=== PATIENT | male | born 1965 | race Caucasian/White ===

== ENCOUNTER 2017-10-22 08:41 | Observation (INO) | payer OTHER ==
--- NOTE | 2017-10-22 08:50 | ED ---
Chest Pain HPI - General Stated Complaint: Poss Stemi Time Seen by Provider: 10/22/17 08:48 - History of Present Illness Initial Comments: Patient complains of chest pain, pressure. His symptoms have been present for a few hours. He has some nausea and upset stomach as well. He has lightheadedness and dizziness. He states the pain does not radiate anywhere else. Nothing makes it better or worse. He was given aspirin EMS just prior to arrival. He has no pain or swelling the legs. He has no palpitations. He denies sick contacts. He denies any recent illnesses. Nothing else makes his symptoms better or worse. He was not doing anything when he began to feel this way. - Related Data Home Medications Medication Instructions Recorded Confirmed Levothyroxine Sodium [Synthroid] 125 mcg PO DAILY 11/11/14 11/10/15 Metoprolol Succinate [Toprol XL] 50 mg PO DAILY 11/11/14 11/10/15 Potassium Citrate [Urocit-K] 10 meq PO DAILY 11/11/14 11/10/15 Previous Rx's Medication Instructions Recorded Ibuprofen [Motrin] 800 mg PO Q8HR PRN #30 tab 11/10/15 Allergies Allergy/AdvReac Type Severity Reaction Status Date / Time dexamethasone Allergy Unknown Verified 11/14/14 10:34 Review of Systems ROS Statement: Those systems with pertinent positive or pertinent negative responses have been documented in the HPI. ROS Other: All systems not noted in ROS Statement are negative. EKG Findings - EKG Comments: EKG Findings:: Twelve-lead EKG is obtained, interpreted by me as showing ventricular rate 66 bpm, normal IL interval and QRS complexes, there is ST elevation in lead aVR, as well as depression in most of the precordial leads, consistent with right-sided STEMI. Past Medical History Past Medical History: Hypertension, Thyroid Disorder Additional Past Medical History / Comment(s): KIDNEY STONES History of Any Multi-Drug Resistant Organisms: None Reported Past Surgical History: Hernia Repair, Orthopedic Surgery Additional Past Surgical History / Comment(s): MEDICAL-back pain, Past Psychological History: No Psychological Hx Reported Smoking Status: Current some day smoker Past Alcohol Use History: None Reported Past Drug Use History: None Reported General Exam General appearance: alert, in no apparent distress Head exam: Present: atraumatic, normocephalic, normal inspection Eye exam: Present: normal appearance, PERRL, EOMI. Absent: scleral icterus, conjunctival injection, periorbital swelling ENT exam: Present: normal exam, mucous membranes moist Neck exam: Present: normal inspection. Absent: tenderness, meningismus, lymphadenopathy Respiratory exam: Present: normal lung sounds bilaterally. Absent: respiratory distress, wheezes, rales, rhonchi, stridor Cardiovascular Exam: Present: regular rate, normal rhythm, normal heart sounds. Absent: systolic murmur, diastolic murmur, rubs, gallop, clicks GI/Abdominal exam: Present: soft, normal bowel sounds. Absent: distended, tenderness, guarding, rebound, rigid Extremities exam: Present: normal inspection, full ROM, normal capillary refill. Absent: tenderness, pedal edema, joint swelling, calf tenderness Back exam: Present: normal inspection Neurological exam: Present: alert, oriented X3, CN II-XII intact Psychiatric exam: Present: normal affect, normal mood Skin exam: Present: warm, dry, intact, normal color. Absent: rash Chest Pain MDM - MDM Patient presents with chest pain and other symptoms consistent with acute AR. STEMI pager was activated patient will be admitted to the hospital. Disposition Clinical Impression: STEMI (ST elevation myocardial infarction) Disposition: ADMITTED IP TO THIS HOSP Condition: Fair Referrals: Zan David MD [Primary Care Provider] - 1-2 days
[2017-10-22] MEDS ORDERED: ATORVASTATIN 80 MG TAB PO STA (09:00)
[2017-10-22] MEDS ORDERED: HEPARIN SODIUM,PORCINE 5,000 UNIT/ML 1 ML VIAL IV STA (09:00)
[2017-10-22] MEDS ORDERED: NALOXONE 0.4 MG/ML 1 ML VIAL IV PRN (09:05)
[2017-10-22] MEDS ORDERED: ONDANSETRON 4 MG/2 ML VIAL IVP PRN (09:05)
[2017-10-22 09:11] LABS: Basophils % (A) 0 %; Eosinophils % (A) 1 %; HGB 14.7 gm/dL (13.0-17.5); Lymphocytes # (A) 1.1 k/uL (1.0-4.8); Lymphocytes % (A) 18 %; MCHC 35.8 g/dL (31.0-37.0); MCV 92.1 fL (80.0-100.0); Mean Platelet Volume 6.8; Monocytes # (A) 0.3 k/uL (0-1.0); Monocytes % (A) 5 %; Neutrophils # (A) 4.6 k/uL (1.3-7.7); Neutrophils % (A) 75 %; Platelet Count 208 k/uL (150-450); RBC 4.45 m/uL (4.30-5.90); RDW 12.5 % (11.5-15.5); WBC 6.1 k/uL (3.8-10.6)
[2017-10-22 09:12] LABS: ALT 31 U/L (21-72); AST 30 U/L (17-59); Albumin 4.2 g/dL (3.5-5.0); Alkaline Phosphatase 57 U/L (38-126); Anion Gap 12 mmol/L; Blood Urea Nitrogen 14 mg/dL (9-20); Calcium 9.9 mg/dL (8.4-10.2); Carbon Dioxide 23 mmol/L (22-30); Chloride 100 mmol/L (98-107); Glucose 141 mg/dL (74-99); Potassium 3.7 mmol/L (3.5-5.1); Sodium 135 mmol/L (137-145); Total Bilirubin 0.6 mg/dL (0.2-1.3); Total Protein 7.1 g/dL (6.3-8.2)
[2017-10-22 09:15] LABS: INR 1.1 (<1.2); Partial Thromboplastin Time 21.5 sec (22.0-30.0); Prothrombin Time 10.5 sec (9.0-12.0)
[2017-10-22] MEDS ORDERED: METOPROLOL TARTRATE 50 MG TAB PO SCH (09:15)
[2017-10-22] MEDS ORDERED: HEPARIN SOD,PORK IN 0.45% NACL 25,000 UNIT in 0.45% NACL 1 500ML.BAG IV SCH (09:15)
[2017-10-22 09:52] LABS: Creatine Kinase 317 U/L (55-170)
--- NOTE | 2017-10-22 09:59 | XR ---
EXAMINATION TYPE: XR chest 2V DATE OF EXAM: 10/22/2017 COMPARISON: None HISTORY: 51 year-old male chest pain TECHNIQUE: Frontal and lateral views FINDINGS: Heart mildly enlarged. Mild diffuse interstitial prominence. Hazy left basilar density likely relates to overlying soft tissue. No angel consolidation or significant pleural effusion. IMPRESSION: 1. Mild cardiomegaly. 2. Interstitial prominence has a chronic appearance. Correlate to exclude bronchitis or chronic asthm a.
[2017-10-22 10:06] LABS: Troponin I <0.012 ng/mL (0.000-0.034)
[2017-10-22 10:09] LABS: Creatine Kinase MB 2.5 ng/mL (0.0-2.4)
[2017-10-22] MEDS: MORPHINE SULFATE 4 MG/ML SYRINGE IV PRN ×2 (10:19→19:39)
[2017-10-22] MEDS: LEVOTHYROXINE 137 MCG TAB PO SCH (10:22)
--- NOTE | 2017-10-22 12:11 | ECHOF ---
Referral Reason:chest pain MEASUREMENTS -------- HEIGHT: 182.9 cm WEIGHT: 98.0 kg BP: 167/82 RVIDd: 3.7 cm (< 3.3) IVSd: 1.5 cm (0.6 - 1.1) LVIDd: 5.1 cm (3.9 - 5.3) LVPWd: 1.5 cm (0.6 - 1.1) IVSs: 2.1 cm LVIDs: 3.2 cm LVPWs: 1.9 cm Ao Diam: 5.2 cm (2.0 - 3.7) AV Cusp: 2.7 cm (1.5 - 2.6) LA Diam: 3.9 cm (2.7 - 3.8) MV EXCURSION: 25.770 mm (> 18.000) MV EF SLOPE: 87 mm/s (70 - 150) EPSS: 0.6 cm MV E Bola: 0.47 m/s MV DecT: 299 ms MV A Bola: 0.58 m/s MV E/A Ratio: 0.81 AR PHT: 465 ms RAP: 5.00 mmHg RVSP: 14.41 mmHg FINDINGS -------- Sinus rhythm. This was a technically adequate study. The left ventricular size is normal. There is moderate concentric left ventricular hypertrophy. O verall left ventricular systolic function is low-normal with, an EF between 50 - 55 %. The right ventricle is normal in size. The left atrial size is normal. The right atrial size is normal. There is [id number] aortic regurgitation. Mild mitral annular calcification present. Mild mitral regurgitation is present. Mild tricuspid regurgitation present. There is no evidence of pulmonary hypertension. The right v entricular systolic pressure, as measured by Doppler, is 14.41mmHg. There is no pulmonic regurgitation present. Aortic Root is dilated and measures 5.0cm. There is no pericardial effusion. CONCLUSIONS -------- 1. The left ventricular size is normal. 2. There is moderate concentric left ventricular hypertrophy. 3. Overall left ventricular systolic function is low-normal with, an EF between 50 - 55 %. 4. There is [id number] aortic regurgitation. 5. Mild mitral annular calcification present. 6. Mild mitral regurgitation is present. 7. Mild tricuspid regurgitation present. 8. There is no evidence of pulmonary hypertension. 9. The right ventricular systolic pressure, as measured by Doppler, is 14.41mmHg. 10. There is no pulmonic regurgitation present. 11. Aortic Root is dilated and measures 5.0cm. 12. There is no pericardial effusion. CREDIT ANALYSIS MANAGER: Genevieve Pennington RDCS
[2017-10-22] MEDS ORDERED: LIDOCAINE 4% CREAM 5 GM TUBE TOPICAL PRN (12:39)
[2017-10-22] MEDS ORDERED: DIAZEPAM 5 MG TAB PO PRN (12:39)
[2017-10-22] MEDS ORDERED: METHOCARBAMOL 750 MG TAB PO PRN (12:39)
[2017-10-22] MEDS ORDERED: ZOLPIDEM 5 MG TAB PO PRN (12:39)
[2017-10-22] MEDS ORDERED: IBUPROFEN 800 MG TAB PO PRN (12:39)
--- NOTE | 2017-10-22 12:57 | CONS ---
CONSULTATION Mr. Mode Leroy was brought to the hospital for possible ST-elevation MA. When I saw him he was complaining of pain in the low back, shortness of breath, a very mild discomfort in the chest, but basically he had taken his narcotics and he felt terrible after that. His 12-lead ECG that was sent from by EMS showed sinus rhythm, right bundle branch block, no clear-cut ST-segment elevation but a possible upsloping ST depression in V2, V3 and V4. When compared to his baseline ECG from October of 2014, he had a right bundle branch block pattern with horizontal ST depressions in the same leads from V3 to V5. He had another ECG done in the ER and it showed a right bundle branch block, but without any clear-cut ST-segment abnormalities of AV baseline and no clear-cut new ST-segment abnormalities. I repeated the ECG once again and he simply has the subtle ST depression in the precordial leads as described above. His first troponin later came back normal. Therefore, I canceled the call for ST-elevation MA and I also canceled urgent coronary angiography. On questioning, he took his pain medications and he felt terrible after that. He complains of a vague pressure in the chest, which is very mild, maybe nausea. He said yes to being lightheaded, dizzy, palpitations and shortness of breath, but did not appear to be short of breath. The pain was nonradiating. His medications include levothyroxine, metoprolol, and potassium. He takes metoprolol because of a rapid heartbeat and it seems he may have racing heart as well as a pounding or healing sensation in the chest, but we have no documentation of any arrhythmias or clear-cut diagnosis at this time. Allergies to DEXAMETHASONE. REVIEW OF SYSTEMS: No fever, chills, or rigors. No cough or expectoration. No nausea, vomiting, diarrhea. No hematuria, dysuria. No strokes, seizures or skin lesions. No musculoskeletal complaints. ECGs as described above. Heart rate in the 60s. According to the an ER physician's note, the EKG shows ST elevation in lead AVR and depression in the precordial leads, consistent with the right-sided STEMI. When compared to his old ECG in 2014, he has the same elevation in AVR with ST-segment abnormality in leads V2. SOCIAL HISTORY: He is a current smoker. No alcohol use. PAST MEDICAL HISTORY: Hypertension, thyroid disorder, palpitations with kidney stones. PAST SURGICAL HISTORY: Hernia repair and orthopedic surgery. PHYSICAL EXAMINATION: His heart rate was in the 50s and 60s. Blood pressure 141/8 and 167/82 mmHg. Head and neck examination is normal. Heart sounds are normal. Lungs are clear to auscultation. Abdomen is soft, nontender. Extremities are warm, no edema. He is lying comfortably in bed. IMPRESSION: 1. Mild chest discomfort with no clear-cut new ST-segment abnormalities on his ECG when compared to his old ECG. This is not consistent with an ST-elevation myocardial infarction. 2. Right bundle branch block. 3. Hypertension. SUGGEST: 1. The patient will be treated as non-Q-wave myocardial infarction until further information is obtained. Serial troponins. Start antihypertensive therapy. Continue beta blockers. Continue aspirin, statins and IV heparin for now. 2. In followup, his first troponin was normal. His CPK was elevated to 317 with a normal troponin of 0.012. Electrolytes were normal. Renal function was normal. Hemoglobin is normal. MMODL / IJN: [id number] /
[2017-10-22] MEDS: HYDROcodone/APAP 10-325MG 1 EACH TAB PO PRN ×2 (13:09→20:44)
[2017-10-22] MEDS: HEPARIN SODIUM,PORCINE 5,000 UNIT/ML 1 ML VIAL IV PRN ×2 (15:35→22:45)
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
[2017-10-22] MEDS: FAMOTIDINE 20 MG TAB PO SCH (17:35)
[2017-10-22] MEDS ORDERED: HEPARIN SODIUM,PORCINE 5,000 UNIT/ML 1 ML VIAL IV PRN (22:42)
[2017-10-23] MEDS: HYDROcodone/APAP 10-325MG 1 EACH TAB PO PRN ×2 (04:43→12:12)
[2017-10-23] MEDS: MORPHINE SULFATE 4 MG/ML SYRINGE IV PRN (07:29)
[2017-10-23 08:13] VITALS: RESP 18
[2017-10-23] MEDS ORDERED: AMINOPHYLLINE 500 MG/20 ML VIAL IV PRN (09:00)
[2017-10-23] MEDS ORDERED: RX INFO: IV CONTRAST WAS GIVEN 1 EACH MISC MISCELLANE PRN (09:00)
[2017-10-23] MEDS ORDERED: ASPIRIN 81 MG PO SCH (09:00)
[2017-10-23] MEDS ORDERED: METOPROLOL SUCCINATE (ER) 100 MG TAB.ER.24H PO SCH (09:00)
[2017-10-23] MEDS ORDERED: ATORVASTATIN 20 MG TAB PO SCH (09:00)
[2017-10-23] MEDS ORDERED: REGADENOSON 0.4 MG/5 ML SYRINGE IV ONE (09:00)
[2017-10-23] MEDS ORDERED: LORATADINE 10 MG TAB PO SCH (09:00)
[2017-10-23] MEDS ORDERED: ATORVASTATIN 40 MG TAB PO SCH (09:00)
--- NOTE | 2017-10-23 10:15 | CT ---
EXAMINATION TYPE: CT angio chest DATE OF EXAM: 10/23/2017 COMPARISON: Radiograph 10/22/2017. Also, CT abdomen and pelvis 05/07/2012. HISTORY: 51-year-old male with dilated aortic root on echo, rule out aortic dissection. TECHNIQUE: Contiguous axial scanning of the chest performed without and with IV Contrast, patient inj ected with 100 mL of Omnipaque 350. Coronal/sagittal MIP reconstructions performed. 3-D reconstructio ns generated on a dedicated independent workstation. CT DLP: 1850 mGycm Automated exposure control for dose reduction was used. FINDINGS: Heart is normal size without pericardial effusion. Very mild coronary vessel calcifications are prese nt. Initial noncontrast images of the aorta show no evidence for acute intramural hematoma. Postcontrast images show no evidence for aortic dissection. Aortic root is measured at 5.1 x 5.3 cm, axial image 31 and sagittal image 28 of series 9. Ascending aorta ectatic at 3.9 cm. Proximal arch measures 3.6 cm. Conventional arch vessel branching anatomy. Upper descending thoracic aorta measures 2.8 cm, within normal limits. Lower descending thoracic aorta borderline ectatic at 2.6 cm. 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 Possibly poststenotic dilatation. No thoracic lymphadenopathy by CT size criteria. Large caliber to the main right and left pulmonary arteries at 3.1 and 2.8 mm, respectively, raising possibility of underlying pulmonary arterial hypertension. Evaluation of the lungs show some strandy atelectasis or scarring in the inferior lingula and basilar left lower lobe. No consolidation or pleural effusion. There is a 4.6 cm mixed soft tissue and fat density mass exophytic from the left adrenal gland. This measured 2.9 cm on the 2012 CT. There is a 3 cm cyst in the upper pole left kidney. Additional small cortical cyst at the midpole and left collecting system staghorn calculus measuring 2.0 x 2.7 cm. Punctate 2 mm nonobstructive calcul us lower pole right kidney. There is underlying fatty infiltration of the liver characterized by low attenuation. Fluid attenuati ng 1.6 cm hypodense lesion right liver lobe likely a cyst. Bones: Partially visualized 10.3 x 5.0 cm lipomatous lesion within the upper left latissimus dorsi, r eferred axial image 10 and sagittal image 49. Endplate spondylosis mid to lower thoracic spine. No osseous destructive process. IMPRESSION: 1. 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 2. ECTATIC ASCENDING AORTA (3.9 CM). 3. 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 SUSPECT A POSTSTENOTIC ANEURYSM. 4. NO EVIDENCE FOR AORTIC DISSECTION. 5. LARGE CALIBER TO THE MAIN RIGHT AND LEFT PULMONARY ARTERIES CAN BE SEEN IN THE SETTING OF PULMONAR Y ARTERIAL HYPERTENSION. CORRELATE WITH FINDINGS ON ECHO. 6. A 4.6 CM MIXED SOFT TISSUE AND FATTY MASS INVOLVING THE LEFT ADRENAL GLAND SHOWS INCREASE IN SIZE FROM 2012 WHERE IT MEASURED 2.9 CM. 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 7. HEPATIC STEATOSIS AND A LEFT RENAL STAGHORN CALCULUS MEASURING UP TO 2.7 CM. 8. PARTIALLY VISUALIZED LIPOMATOUS LESION MEASURING AT LEAST 10.3 X 5.0 CM IN THE UPPER LEFT LATISSIM US DORSI. 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 HOWEVER, GIVEN THE SIZE OF THE LESION, CLINICAL SURV EILLANCE IS RECOMMENDED ATYPICAL LIPOMATOUS TUMOR AND LOW-GRADE LIPOSARCOMA COULD HAVE A SIMILAR A PPEARANCE. IF IMAGING FOLLOW-UP IS DESIRED, IN THE ABSENCE OF SYMPTOMS, ANNUAL EXAMINATION BE CONSIDE RED.
--- NOTE | 2017-10-23 11:51 | NM ---
EXAMINATION TYPE: NM stress lexiscan cardiolite DATE OF EXAM: 10/23/2017 COMPARISON: NONE HISTORY: Chest pain TECHNIQUE: After the intravenous administration of 10.29 mCi Tc 99m Sestamibi - Cardiolite resting S PECT images acquired 35 minutes post injection. The patient received 0.4mg Lexiscan, 27.1 mCi Tc 99m Sestamibi - Stress images obtained [address] injection FINDINGS: No fixed or reversible perfusion defects are evident. Gated wall motion has mild hypokinesia. There may be some dyskinesia of the inferior wall Ejection fraction is low at 45%. Normal greater than 50%. IMPRESSION: 1. No stress-induced ischemic changes. 2. Suspected mild dyskinesia of the inferior wall near the apex. There is some global hypokinesia. Ej ection fraction is low at 45%.
[2017-10-23] MEDS: LEVOTHYROXINE 137 MCG TAB PO SCH (12:08)
[2017-10-23] MEDS: FAMOTIDINE 20 MG TAB PO SCH (12:08)
[2017-10-23] MEDS ORDERED: LISINOPRIL 5 MG TAB PO SCH (12:15)
--- NOTE | 2017-10-23 12:19 | P.PN ---
Subjective Progress Note Date: 10/23/17 Mr. Leroy is seen and examined today resting comfortably in bed. He denies any further symptoms of chest pain, shortness of breath, dizziness, palpitations, nausea, vomiting or diaphoresis. Repeat EKG this morning is the same as yesterday with no acute changes. Telemetry tracings have been unremarkable. Cardiac enzymes are negative x3, echocardiogram performed revealed preserved left ventricular systolic function with ejection fraction 50-55%, mild to moderate aortic regurgitation, mild mitral regurgitation and mild tricuspid regurgitation. Aortic root is dilated and measured 5 cm. Blood pressure has remained elevated since admission with systolic as high as 172. Objective - Vital Signs Vital signs: Vital Signs Temp 97.8 F 10/23/17 11:52 Pulse 53 L 10/23/17 11:52 Resp 18 10/23/17 11:52 BP 156/91 10/23/17 11:52 Pulse Ox 96 10/23/17 11:52 Intake & Output 10/22/17 10/23/17 10/23/17 18:59 06:59 18:59 Intake Total 381.333 429.429 Balance 381.333 429.429 Weight 105.2 kg Intake: Amount of Fluid Infused ( 20 ml) Intake, IV Titration 121.333 189.429 Amount Heparin Sod,Pork in 0.45% 121.333 189.429 NaCl 25,000 unit In 0.45 % NaCl 1 500ml.bag @ 10. 184 UNITS/KG/HR 20 mls/hr IV .Q24H [facility] Rx#: [id number] Oral 240 240 Other: Voiding Method Toilet Toilet Toilet # Voids 1 - Exam Blood pressure 144/81 heart rate 58 afebrile maintaining oxygenation on 2 L nasal cannula. GENERAL: Well-appearing, well-nourished and in no acute distress. NECK: Supple without JVD or thyromegaly. LUNGS: Breath sounds clear to auscultation bilaterally. Respiration equal and unlabored. No wheezes, rales or rhonchi. Diminished. HEART: Regular rate and rhythm without murmurs, rubs or gallops. S1 and S2 heard. EXTREMITIES: Normal range of motion, no edema. No clubbing or cyanosis. Peripheral pulses intact and strong. - Labs CBC & Chem 7: 10/22/17 08:49 10/22/17 08:49 Labs: Abnormal Lab Results - Last 24 Hours (Table) 10/22/17 10/23/17 Range/Units 20:57 07:00 APTT 31.6 H 39.7 H (22.0-30.0) sec Assessment and Plan Assessment: ASSESSMENT 1. Chest pain, no evidence of an acute coronary event. Cardiac enzymes are negative x3. 2. Hypertension 3. Right bundle branch block 4. Dyslipidemia 5. Chronic tobacco abuse 6. Dilated aortic root PLAN Discontinue heparin infusion. Perform CT of the chest to further assess for aorta Perform Lexiscan stress test to assess for reversible cardiac ischemia. Add lisinopril 5 mg to daily regimen. Continue with atorvastatin, toprol and aspirin as was previously ordered. Further recommendations to follow. Nurse Practitioner note has been reviewed, I agree with a documented findings and plan of care. Patient was seen and examined.
--- NOTE | 2017-10-23 13:26 | P.DS ---
Providers Date of admission: 10/22/17 09:05 Attending physician: Zan David Consults: 10/22/17 09:06 Consult Physician Routine Consulting Provider: Mikey Briseno Consult Reason/Comments: chest pain Do you want consulting provider notified?: Yes Primary care physician: Zan David - Discharge Diagnosis(es) (1) Hypertension Current Visit: Yes Status: Acute (2) Opiate dependence Current Visit: Yes Status: Acute (3) Chronic back pain greater than 3 months duration Current Visit: Yes Status: Acute (4) STEMI (ST elevation myocardial infarction) Current Visit: Yes Status: Acute Hospital Course: This discharge 51-year-old white male essentially admitted for chest pressure. He is a smoker and has significant risk factors. However, cardiology workup did not show significant issue. Showed ejection fraction of 50-55%. The patient is not a symptomatically for pain and emulating and tolerating diet without difficulty. The patient was stabilized and will follow-up with me in about 5 days. Patient Condition at Discharge: Fair Plan - Discharge Summary Discharge Rx Participant: No New Discharge Prescriptions: New Aspirin 81 mg PO DAILY chew Lisinopril [Zestril] 5 mg PO DAILY #30 tab Continue Cetirizine HCl [Zyrtec] 10 mg PO DAILY Metoprolol Succinate [Toprol XL] 100 mg PO DAILY Methocarbamol [Robaxin] 750 mg PO Q8H PRN PRN Reason: Muscle Spasm Diazepam [Valium] 5 mg PO TID PRN PRN Reason: Anxiety Lidocaine 5% Oint [Xylocaine 5% Oint] 1 applic TOPICAL BID PRN PRN Reason: Pain Levothyroxine Sodium [Synthroid] 137 mcg PO DAILY Ibuprofen [Motrin] 800 mg PO AC-TID PRN PRN Reason: Pain Atorvastatin [Lipitor] 20 mg PO DAILY Zolpidem [Ambien] 5 mg PO HS PRN PRN Reason: Insomnia Hydrocodone/Acetaminophen [[place] 10-325] 1 tab PO Q6H PRN PRN Reason: Pain Discharge Medication List Atorvastatin [Lipitor] 20 mg PO DAILY 10/22/17 [History] Cetirizine HCl [Zyrtec] 10 mg PO DAILY 10/22/17 [History] Diazepam [Valium] 5 mg PO TID PRN 10/22/17 [History] Hydrocodone/Acetaminophen [[place] 10-325] 1 tab PO Q6H PRN 10/22/17 [History] Ibuprofen [Motrin] 800 mg PO AC-TID PRN 10/22/17 [History] Levothyroxine Sodium [Synthroid] 137 mcg PO DAILY 10/22/17 [History] Lidocaine 5% Oint [Xylocaine 5% Oint] 1 applic TOPICAL BID PRN 10/22/17 [History ] Methocarbamol [Robaxin] 750 mg PO Q8H PRN 10/22/17 [History] Metoprolol Succinate [Toprol XL] 100 mg PO DAILY 10/22/17 [History] Zolpidem [Ambien] 5 mg PO HS PRN 10/22/17 [History] Aspirin 81 mg PO DAILY chew 10/23/17 [Rx] Lisinopril [Zestril] 5 mg PO DAILY #30 tab 10/23/17 [Rx] Follow up Appointment(s)/Referral(s): Zan David MD [Primary Care Provider] - 1 Week Discharge Disposition: HOME SELF-CARE
--- NOTE | 2017-10-23 16:07 | P.STRESS ---
- Stress Test Note Stress Test Results/Findings: Exam Performed: NM stress lexiscan cardiolite Exam Date: 10/23/17 Reason for Exam: Chest Pain Height: 6 ft Weight: 105.2 kg Protocol: Racheal Scan Stage: na Duration of Exercise: na Resting Heart Rate: 58 Resting Blood Pressure: 150/96 Maximum Achieved Heart Rate: 75 Maximum Achieved Blood Pressure: 160/96 85% PMHR: na 100% PMHR: na METS: na Technologist Comment: Stress Test Results/Findings: This is a 51-year-old gentleman with history of hypertension, family history of ischemic heart disease and smoking being evaluated for symptoms of chest pain and shortness of breath. Baseline EKG showed sinus rhythm with normal [place] interval and QRS duration with incomplete her right bundle-branch block pattern.. Blood pressure at rest is 150/96 with pulse rate of 58. A standard dose of Lexiscan was infused EKGs taken during and after the exercise did not reveal any significant changes from the baseline. Final impression: #1. Negative Lexiscan stress test #2. Report on the nuclear images to be given by the radiologist.
[2017-10-23 16:18] VITALS: BP 140/84; PULSE 52; TEMP 98.3
[2017-10-23] MEDS ORDERED: MORPHINE ORAL SOLN 10 MG/5 ML CUP PO PRN (16:35)
--- NOTE | 2017-10-29 10:17 | EST ---
- Stress Test Note Stress Test Results/Findings: Exam Performed: NM stress lexiscan cardiolite Exam Date: 10/23/17 Reason for Exam: Chest Pain Height: 6 ft Weight: 105.2 kg Protocol: Racheal Scan Stage: na Duration of Exercise: na Resting Heart Rate: 58 Resting Blood Pressure: 150/96 Maximum Achieved Heart Rate: 75 Maximum Achieved Blood Pressure: 160/96 85% PMHR: na 100% PMHR: na METS: na Technologist Comment: Stress Test Results/Findings: This is a 51-year-old gentleman with history of hypertension, family history of ischemic heart disease and smoking being evaluated for symptoms of chest pain and shortness of breath. Baseline EKG showed sinus rhythm with normal [place] interval and QRS duration with incomplete her right bundle-branch block pattern.. Blood pressure at rest is 150/96 with pulse rate of 58. A standard dose of Lexiscan was infused EKGs taken during and after the exercise did not reveal any significant changes from the baseline. Final impression: #1. Negative Lexiscan stress test #2. Report on the nuclear images to be given by the radiologist. HUI
--- NOTE | 2017-10-30 11:35 | CDI ---
Outpatient Documentation Clarification Form Date: 10-30-17 CDS/Site Inspector Name: Namrata Caba Phone: If you have question, contact Vijaya Eng, Provider Network Mgr at M-F 8:30 am to 6pm. Patient Name: Mode Leroy Admit Date: 10-22-17 Discharge Date: 10-23-17 ATTENTION: The Clinical Documentation Specialists (CDI) and [facility] Coding Staff appreciate your assistance in clarifying documentation. Please respond to the clarification below the line at the bottom and electronically sign. The CDI & [facility] Coding staff will review the response and follow-up if needed. Please note: Queries are made part of the Legal Health Record. If you have any questions, please contact the author of this message via ITS or call the Provider Network Mgr. Dr. David, If you agree this patient had a confirmed "STEMI" please add as a discharge diagnosis below the line. If this was NOT confirmed please add "chest pain" as a discharge diagnosis below the line. Thank you. MTDD
== END 2017-10-23 17:13 | disposition home or self-care (01) ==
LOC: EC 08:41 → 3OBS 09:05
PROVIDERS: ADMIT Family Medicine; ATTEND Family Medicine
DX: R07.89 Other chest pain (principal); R00.2 Palpitations; R19.7 Diarrhea, unspecified; R11.0 Nausea; K30 Functional dyspepsia; R42 Dizziness and giddiness; R06.02 Shortness of breath; I10 Essential (primary) hypertension; F11.20 Opioid dependence, uncomplicated; G89.29 Other chronic pain; M54.5 Low back pain; E78.5 Hyperlipidemia, unspecified; I77.819 Aortic ectasia, unspecified site; I45.10 Unspecified right bundle-branch block; E03.9 Hypothyroidism, unspecified; N28.9 Disorder of kidney and ureter, unspecified; M19.90 Unspecified osteoarthritis, unspecified site; E66.9 Obesity, unspecified; Z68.31 Body mass index [BMI] 31.0-31.9, adult; F17.200 Nicotine dependence, unspecified, uncomplicated; Z79.899 Other long term (current) drug therapy; Z88.8 Allergy status to other drugs, medicaments and biological substances; Z87.442 Personal history of urinary calculi; Z82.49 Family history of ischemic heart disease and other diseases of the circulatory system; M19.011 Primary osteoarthritis, right shoulder; M19.012 Primary osteoarthritis, left shoulder; M17.0 Bilateral primary osteoarthritis of knee
CPT/HCPCS: 99285 ×2; 96376 ×4; 96375 ×3; 96365 ×2; 96366 ×3; 96361; 36415; 93005; 93017; 93306; 80053; 82550; 82553; 84484; 85025; 85610; 85730 ×2; 71046; 71275; 78452; G0378 ×2; A9500; J2270 ×2; J1644 ×2; Q9967; J2405; J2785

== ENCOUNTER 2017-12-12 08:34 | Observation (INO) | payer OTHER ==
[2017-12-12] MEDS ORDERED: SODIUM CHLORIDE 0.9% 1,000 ML IV STA ×2 (08:40)
[2017-12-12] MEDS ORDERED: ONDANSETRON 4 MG/2 ML VIAL IVP STA (08:40)
--- NOTE | 2017-12-12 08:44 | ED ---
Chest Pain HPI - General Stated Complaint: chest pain Time Seen by Provider: 12/12/17 08:34 Source: patient, EMS, RN notes reviewed Mode of arrival: EMS - History of Present Illness Initial Comments: This is a 51-year-old male with a history of hernia surgery and knee surgery who had the onset 3 days ago nausea vomiting diarrhea. He states she's not been able keep anything down over time he tries he throws up. He also states he been having some intermittent left-sided chest pain this morning it was very severe at 9/10 severity states that sharp left midsternal and radiated to his neck and left shoulder. He did summon EMS he was given 2 nitroglycerin as well as 324 mg aspirin the pain improved from a /10 to 3-11/26. He has no known history of chest pain/cardiac disease. He denies any blood per rectum as any other modifying factors he does feel lightheaded and dizzy when he tries to get up MD Complaint: chest pain, other - Related Data Home Medications Medication Instructions Recorded Confirmed Atorvastatin [Lipitor] 20 mg PO DAILY 10/22/17 12/12/17 Cetirizine HCl [Zyrtec] 10 mg PO DAILY 10/22/17 12/12/17 Diazepam [Valium] 5 mg PO TID PRN 10/22/17 12/12/17 Hydrocodone/Acetaminophen [[place] 1 tab PO Q6H PRN 10/22/17 12/12/17 10-325] Ibuprofen [Motrin] 800 mg PO AC-TID 10/22/17 12/12/17 Levothyroxine Sodium [Synthroid] 137 mcg PO DAILY 10/22/17 12/12/17 Lidocaine 5% Oint [Xylocaine 5% 1 applic TOPICAL BID PRN 10/22/17 12/12/17 Oint] Methocarbamol [Robaxin] 750 mg PO Q8H PRN 10/22/17 12/12/17 Metoprolol Succinate [Toprol XL] 100 mg PO DAILY 10/22/17 12/12/17 Zolpidem [Ambien] 5 mg PO HS 10/22/17 12/12/17 Lisinopril [Zestril] 10 mg PO DAILY 12/12/17 12/12/17 Pantoprazole Sodium [Protonix] 20 mg PO DAILY 12/12/17 12/12/17 Allergies Allergy/AdvReac Type Severity Reaction Status Date / Time dexamethasone Allergy Unknown Verified 12/12/17 09:25 Review of Systems ROS Statement: Those systems with pertinent positive or pertinent negative responses have been documented in the HPI. ROS Other: All systems not noted in ROS Statement are negative. EKG Findings - EKG Results: EKG: interpreted by ERMD (Sinus rhythm of 81. Interval 154 QRS duration 104 QT since QTC of 440/511 evidence a left exodeviation incomplete right bundle- branch block evidence of LVH nonspecific ST configuration QT prolongation this is compared to an EKG dated 10/23/17) Past Medical History Past Medical History: Hypertension, Osteoarthritis (OA), Renal Disease, Thyroid Disorder Additional Past Medical History / Comment(s): KIDNEY STONES, HYPOTHYROID, LOW BACK PAIN, ARTHRITIS BILATERAL SHOULDERS AND KNEES. History of Any Multi-Drug Resistant Organisms: None Reported Past Surgical History: Heart Catheterization, Hernia Repair, Orthopedic Surgery Additional Past Surgical History / Comment(s): CARDIAC CATH 1990s, R INGUINAL HERNIA REPAIR, BILATERAL KNEE ARTHROSCOPIES, CYSTO/URETERAL CATHETER/PNCL. Past Anesthesia/Blood Transfusion Reactions: No Reported Reaction Smoking Status: Current every day smoker - Past Family History Father Family Medical History: Coronary Artery Disease (CAD), Myocardial Infarction (NH ) Additional Family Medical History / Comment(s): FATHER HAD A NH AT THE AGE OF 56YRS. Mother Additional Family Medical History / Comment(s): MOTHER FROM A STAPH INFECTION. General Exam - General Exam Comments Initial Comments: This is a well-developed well-nourished awake alert oriented times 3 male General appearance: alert, in no apparent distress Head exam: Present: atraumatic, normocephalic, normal inspection Eye exam: Present: normal appearance, PERRL, EOMI. Absent: scleral icterus, conjunctival injection, periorbital swelling ENT exam: Present: mucous membranes dry Neck exam: Present: normal inspection, full ROM, other (No stridor JVD or bruits ). Absent: tenderness, meningismus, lymphadenopathy Respiratory exam: Present: normal lung sounds bilaterally. Absent: respiratory distress, wheezes, rales, rhonchi, stridor, chest wall tenderness Cardiovascular Exam: Present: regular rate, normal rhythm, normal heart sounds. Absent: systolic murmur, diastolic murmur, rubs, gallop, clicks GI/Abdominal exam: Present: soft, normal bowel sounds. Absent: distended, tenderness, guarding, rebound, rigid Extremities exam: Present: normal inspection, full ROM, normal capillary refill. Absent: tenderness, pedal edema, joint swelling, calf tenderness Back exam: Present: normal inspection Neurological exam: Present: alert, oriented X3, CN II-XII intact Psychiatric exam: Present: normal affect, normal mood Skin exam: Present: warm, dry, intact, normal color. 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 Patient still had chest pain though his workup thus far was negative he did have a fairly recent stress test was apparently negative. I did discuss case with him and with Dr. David the patient will be admitted for evaluation of chest pain Disposition Clinical Impression: Unstable angina, Gastroenteritis Disposition: ADMITTED IP TO THIS [facility] Condition: Stable Referrals: Zan David MD [Primary Care Provider] - 1-2 days
[2017-12-12 09:41] LABS: Basophils % (A) 1 %; Eosinophils # (A) 0.1 k/uL (0-0.7); Eosinophils % (A) 1 %; HCT 44.9 % (39.0-53.0); HGB 15.3 gm/dL (13.0-17.5); Lymphocytes # (A) 1.5 k/uL (1.0-4.8); Lymphocytes % (A) 22 %; MCHC 34.1 g/dL (31.0-37.0); Mean Platelet Volume 7.3; Monocytes # (A) 0.4 k/uL (0-1.0); Monocytes % (A) 5 %; Neutrophils # (A) 4.8 k/uL (1.3-7.7); Neutrophils % (A) 71 %; Platelet Count 230 k/uL (150-450); RBC 4.93 m/uL (4.30-5.90); RDW 12.4 % (11.5-15.5); WBC 6.7 k/uL (3.8-10.6)
[2017-12-12 09:51] LABS: ALT 31 U/L (21-72); AST 35 U/L (17-59); Albumin 4.9 g/dL (3.5-5.0); Alkaline Phosphatase 64 U/L (38-126); Amylase 60 U/L (30-110); Anion Gap 18 mmol/L; Blood Urea Nitrogen 12 mg/dL (9-20); Carbon Dioxide 21 mmol/L (22-30); Chloride 101 mmol/L (98-107); Glucose 142 mg/dL (74-99); Lipase 282 U/L (23-300); Magnesium 1.9 mg/dL (1.6-2.3); Potassium 3.7 mmol/L (3.5-5.1); Sodium 140 mmol/L (137-145); Total Bilirubin 0.7 mg/dL (0.2-1.3); Total Protein 7.8 g/dL (6.3-8.2)
[2017-12-12 09:54] LABS: INR 1.1 (<1.2); Partial Thromboplastin Time 22.3 sec (22.0-30.0); Prothrombin Time 10.6 sec (9.0-12.0)
[2017-12-12 09:56] LABS: D-Dimer 0.65 mg/L FEU (<0.60)
[2017-12-12 10:03] LABS: Creatine Kinase 67 U/L (55-170)
--- NOTE | 2017-12-12 10:03 | XR ---
EXAMINATION TYPE: XR chest 2V DATE OF EXAM: 12/12/2017 COMPARISON: 10/22/2017 HISTORY: Chest pain TECHNIQUE: Frontal and lateral views of the chest are obtained. FINDINGS: There is no focal air space opacity, pleural effusion, or pneumothorax seen. The cardiac silhouette size is enlarged. The osseous structures are intact. Minimal multilevel degenerative tk nges of the thoracic spine are noted. The lung apices are obscured by the patient's chin. IMPRESSION: Cardiomegaly with no acute cardiopulmonary process.
[2017-12-12 10:15] LABS: Creatine Kinase MB 0.6 ng/mL (0.0-2.4); Troponin I <0.012 ng/mL (0.000-0.034)
[2017-12-12] MEDS ORDERED: RX INFO: IV CONTRAST WAS GIVEN 1 EACH MISC MISCELLANE PRN (10:46)
--- NOTE | 2017-12-12 12:00 | CT ---
CT CHEST FOR PULMONARY EMBOLISM. EXAMINATION TYPE: CT angio chest DATE OF EXAM: 12/12/2017 INDICATION: Chest pain for [address] DLP: 595 mGycm, Automated exposure control for dose reduction was used. CONTRAST: Patient injected with 100 ml mL of Isovue 370. COMPARISON: 10/23/2017 TECHNIQUE: CT of the chest is performed on a spiral scan at 2 mm thick sections. Study is performed with intravenous contrast timed for evaluation for pulmonary embolism. This will limit additional po rtions of the evaluation. 3-D MIP images reconstructed by the technologist are reviewed on the compu ter in the coronal and sagittal planes. FINDINGS: No persistent filling defects are evident to suggest an acute pulmonary embolism. No mediastinal or hilar adenopathy enlarged by CT criteria is evident. The ascending aorta diameter at the level of the main pulmonary artery is 3.8 cm. There is more dilatation of the root of the aor ta measuring 4.8 x 4.8 cm. The main pulmonary artery diameter at the bifurcation is 3.1 cm. Lung windows are clear. Limited CT section through the upper abdomen are obtained. There is a hypodense area within the later al right mid liver measuring 1.3 cm. Additional hypodensities more superiorly measuring 1.8 cm. These measure approximately 0 Hounsfield units suggestive for cysts. IMPRESSIONS: 1. No acute pulmonary embolism.
[2017-12-12] MEDS ORDERED: HEPARIN SODIUM,PORCINE 5,000 UNIT/ML 1 ML VIAL IV ONE (12:47)
[2017-12-12] MEDS ORDERED: NITROGLYCERIN SL TABS 0.4 MG TAB SUBLINGUAL PRN (12:47)
[2017-12-12] MEDS ORDERED: LIDOCAINE 5% OINTMENT 50 GM JAR TOPICAL PRN (12:49)
[2017-12-12] MEDS ORDERED: DIAZEPAM 5 MG TAB PO PRN (12:49)
[2017-12-12] MEDS ORDERED: METHOCARBAMOL 750 MG TAB PO PRN (12:49)
[2017-12-12] MEDS ORDERED: HEPARIN SOD,PORK IN 0.45% NACL 25,000 UNIT in 0.45% NACL 1 500ML.BAG IV SCH (13:00)
[2017-12-12 15:07] VITALS: BMI 30.1
[2017-12-12 15:35] LABS: Creatine Kinase 61 U/L (55-170)
[2017-12-12 15:48] LABS: Creatine Kinase MB 0.6 ng/mL (0.0-2.4); Troponin I <0.012 ng/mL (0.000-0.034)
[2017-12-12] MEDS: HYDROcodone/APAP 10-325MG 1 EACH TAB PO PRN ×2 (17:38→22:50)
[2017-12-12] MEDS: NITROGLYCERIN OINT 1 INCH/GM PACKET TOPICAL SCH ×2 (19:42→23:20)
[2017-12-12] MEDS ORDERED: MAG HYDROX/AL HYDROX/SIMETH 30 ML CUP PO PRN (20:43)
[2017-12-12] MEDS ORDERED: ZOLPIDEM 5 MG TAB PO PRN (21:00)
[2017-12-12 21:21] LABS: Creatine Kinase 61 U/L (55-170)
--- NOTE | 2017-12-12 21:23 | P.HPIM ---
History of Present Illness H&P Date: 12/12/17 Chief Complaint: Chest pressure with nausea. This is a history and physical on a 51-year-old white male with history of chronic back pain and knee pain. He states three-day history of worsening nausea vomiting and intermittent left-sided chest pain which was severe this morning. He was relieved with nitroglycerin after calling EMS. He had similar symptoms recently within the last several months. That workup at that time was negative. He has no previous history of known cardiac disease. No GI upset or bleeding since admission. The patient does not describe any onset of diaphoretic symptoms Review of Systems Constitutional: Reports chronic pain, Denies weakness, Denies weight gain, Denies weight loss Eyes: denies blurred vision, denies pain Ears, nose, mouth and throat: Denies headache, Denies sore throat Cardiovascular: Reports as per HPI, Reports chest pain Respiratory: Denies cough Gastrointestinal: Denies abdominal pain, Denies diarrhea, Denies nausea, Denies vomiting Integumentary: Denies pruritus, Denies rash Neurological: Denies numbness, Denies weakness Psychiatric: Denies anxiety, Denies depression Past Medical History Past Medical History: GERD/Reflux, Hyperlipidemia, Hypertension, Osteoarthritis (OA), Thyroid Disorder Additional Past Medical History / Comment(s): Arthritis bilateral shoulders, bilateral knees and low back, chronic low back pain, nephrolithiasis, hypothyroid. History of Any Multi-Drug Resistant Organisms: None Reported Past Surgical History: Heart Catheterization, Hernia Repair, Orthopedic Surgery Additional Past Surgical History / Comment(s): CARDIAC CATH 1990s, R INGUINAL HERNIA REPAIR, BILATERAL KNEE ARTHROSCOPIES, CYSTO/URETERAL CATHETER/PNCL. Past Anesthesia/Blood Transfusion Reactions: No Reported Reaction Smoking Status: Current every day smoker - Past Family History Father Family Medical History: Coronary Artery Disease (CAD), Myocardial Infarction (NE ) Additional Family Medical History / Comment(s): FATHER HAD A NE AT THE AGE OF 56YRS. HE IS STILL LIVING. Mother Additional Family Medical History / Comment(s): MOTHER FROM A STAPH INFECTION. Medications and Allergies Home Medications Medication Instructions Recorded Confirmed Type Atorvastatin [Lipitor] 20 mg PO DAILY 10/22/17 12/12/17 History Cetirizine HCl [Zyrtec] 10 mg PO DAILY 10/22/17 12/12/17 History Diazepam [Valium] 5 mg PO TID PRN 10/22/17 12/12/17 History Hydrocodone/Acetaminophen [[place] 1 tab PO Q6H PRN 10/22/17 12/12/17 History 10-325] Ibuprofen [Motrin] 800 mg PO AC-TID 10/22/17 12/12/17 History Levothyroxine Sodium [Synthroid] 137 mcg PO DAILY 10/22/17 12/12/17 History Lidocaine 5% Oint [Xylocaine 5% 1 applic TOPICAL BID PRN 10/22/17 12/12/17 History Oint] Methocarbamol [Robaxin] 750 mg PO Q8H PRN 10/22/17 12/12/17 History Metoprolol Succinate [Toprol XL] 100 mg PO DAILY 10/22/17 12/12/17 History Zolpidem [Ambien] 5 mg PO HS 10/22/17 12/12/17 History Lisinopril [Zestril] 10 mg PO DAILY 12/12/17 12/12/17 History Pantoprazole Sodium [Protonix] 20 mg PO DAILY 12/12/17 12/12/17 History Allergies Allergy/AdvReac Type Severity Reaction Status Date / Time dexamethasone Allergy Unknown Verified 12/12/17 09:25 Physical Exam Vitals: Vital Signs Temp Pulse Pulse Pulse Resp BP BP 12/12/17 19:42 98.0 F 78 16 12/12/17 16:19 97.5 F L 70 18 170/95 12/12/17 14:25 97.4 F L 73 18 167/97 12/12/17 13:00 97.5 F L 70 16 184/90 12/12/17 11:42 97.6 F 61 19 142/87 12/12/17 10:55 65 18 136/76 12/12/17 09:57 63 18 138/70 12/12/17 09:08 86 12/12/17 08:44 98.5 F 86 20 116/66 BP Pulse Ox 12/12/17 19:42 197/107 99 12/12/17 16:19 96 12/12/17 14:25 98 12/12/17 13:00 97 12/12/17 11:42 99 12/12/17 10:55 97 12/12/17 09:57 98 12/12/17 09:08 12/12/17 08:44 97 Intake and Output 12/12/17 12/12/17 12/12/17 06:59 14:59 22:59 Intake Total 100 Balance 100 Intake: Oral 100 Other: Weight 100.8 kg - Constitutional General appearance: no acute distress - EENT Eyes: EOMI - Neck Neck: no lymphadenopathy - Respiratory Respiratory: bilateral: CTA - Cardiovascular Rhythm: regular Heart sounds: normal: S1, S2 Abnormal Heart Sounds: no S3 Gallop - Gastrointestinal General gastrointestinal: soft, no tenderness - Musculoskeletal Musculoskeletal: gait normal - Psychiatric Psychiatric: A&O x's 3 Results CBC & Chem 7: 12/12/17 09:30 12/12/17 09:30 Labs: Abnormal Lab Results - Last 24 Hours (Table) 12/12/17 12/12/17 Range/Units 09:30 09:30 D-Dimer 0.65 H (<0.60) mg/L FEU Carbon Dioxide 21 L (22-30) mmol/L Glucose 142 H (74-99) mg/dL Thrombosis Risk Factor Assmnt - Choose All That Apply Any of the Below Risk Factors Present?: Yes Each Factor Represents 1 point: Age 41-60 years, Obesity (BMI >25) Other Risk Factors: No Other congenital or acquired thrombophilia - If yes, enter type in comment: No Thrombosis Risk Factor Assessment Total Risk Factor Score: 2 Thrombosis Risk Factor Assessment Level: Low Risk Assessment and Plan (1) Unstable angina Current Visit: Yes Status: Acute Code(s): I20.0 - UNSTABLE ANGINA SNOMED Code(s): 7958297 (2) Chronic back pain greater than 3 months duration Current Visit: No Status: Acute Code(s): M54.9 - DORSALGIA, UNSPECIFIED; G89.29 - OTHER CHRONIC PAIN SNOMED Code(s): 610784975 (3) Hypertension Current Visit: No Status: Acute Code(s): I10 - ESSENTIAL (PRIMARY) HYPERTENSION SNOMED Code(s): 63585163 (4) Opiate dependence Current Visit: No Status: Acute Code(s): F11.20 - OPIOID DEPENDENCE, UNCOMPLICATED SNOMED Code(s): 73512437 Plan: Rule out myocardial infarction. Reconcile home medications. Watch vital signs closely. Question need for repeat cardiac testing in the a.m. We'll continue to follow. Time with Patient: Greater than 30
[2017-12-12 21:34] LABS: Creatine Kinase MB 0.6 ng/mL (0.0-2.4); Troponin I <0.012 ng/mL (0.000-0.034)
[2017-12-12 22:12] LABS: Cholesterol 145 mg/dL (<200); HDL Cholesterol 45 mg/dL (40-60); LDL Cholesterol,Calculated 66 mg/dL (0-99); Triglycerides 170 mg/dL (<150)
[2017-12-12 23:51] VITALS: RESP 18
[2017-12-13] MEDS: HYDROcodone/APAP 10-325MG 1 EACH TAB PO PRN ×2 (03:53→09:20)
[2017-12-13] MEDS: NITROGLYCERIN OINT 1 INCH/GM PACKET TOPICAL SCH (04:56)
[2017-12-13] MEDS ORDERED: LEVOTHYROXINE 137 MCG TAB PO SCH (06:30)
[2017-12-13] MEDS ORDERED: PANTOPRAZOLE SODIUM 40 MG GRANULE PKT PO SCH (07:30)
--- NOTE | 2017-12-13 08:14 | P.PN ---
Subjective Progress Note Date: 12/13/17 Principal diagnosis: Chest pain. The patient is here essentially because of recurrent chest pressure. He was recently admitted for similar symptoms but had significant substernal chest pressure for the last 2-3 days. He actually waited one day prior to coming in because he was not convinced that the pain was significant but the pain became worse. Enzymes are normal at this point 3. The patient rested comfortably and is now on heparin drip. I appreciate cardiology input. Objective - Vital Signs Vital signs: Vital Signs Temp 98.0 F 12/13/17 07:50 Pulse 75 12/13/17 07:50 Resp 18 12/13/17 07:50 BP 112/58 12/13/17 07:50 Pulse Ox 100 12/13/17 07:50 Intake & Output 12/12/17 12/13/17 12/13/17 18:59 06:59 18:59 Intake Total 100 365.853 Balance 100 365.853 Weight 100.8 kg Intake: Intake, IV Titration 365.853 Amount Heparin Sod,Pork in 0.45% 365.853 NaCl 25,000 unit In 0.45 % NaCl 1 500ml.bag @ 10 UNITS/KG/HR 19.95 mls/hr IV .Q24H ELOISE Rx#: [id number] Oral 100 Other: # Voids 1 - Constitutional General appearance: Present: obese - EENT Eyes: Absent: abnormal pupil - Respiratory Respiratory: bilateral: CTA - Cardiovascular Rhythm: regular Abnormal Heart Sounds: Absent: S3 Gallop - Gastrointestinal General gastrointestinal: Present: soft. Absent: tenderness - Psychiatric Psychiatric: Present: A&O x's 3, appropriate affect, intact judgment & insight - Labs CBC & Chem 7: 12/12/17 09:30 12/12/17 09:30 Labs: Abnormal Lab Results - Last 24 Hours (Table) 12/12/17 12/12/17 12/12/17 Range/Units 09:30 09:30 09:30 APTT (22.0-30.0) sec D-Dimer 0.65 H (<0.60) mg/L FEU Carbon Dioxide 21 L (22-30) mmol/L Glucose 142 H (74-99) mg/dL Triglycerides 170 H (<150) mg/dL 12/13/17 Range/Units 05:24 APTT 31.8 H (22.0-30.0) sec D-Dimer (<0.60) mg/L FEU Carbon Dioxide (22-30) mmol/L Glucose (74-99) mg/dL Triglycerides (<150) mg/dL Assessment and Plan (1) Unstable angina Current Visit: Yes Status: Acute Code(s): I20.0 - UNSTABLE ANGINA SNOMED Code(s): 1169839 (2) Chronic back pain greater than 3 months duration Current Visit: No Status: Acute Code(s): M54.9 - DORSALGIA, UNSPECIFIED; G89.29 - OTHER CHRONIC PAIN SNOMED Code(s): 532759380 (3) Hypertension Current Visit: No Status: Acute Code(s): I10 - ESSENTIAL (PRIMARY) HYPERTENSION SNOMED Code(s): 38657748 (4) Opiate dependence Current Visit: No Status: Acute Code(s): F11.20 - OPIOID DEPENDENCE, UNCOMPLICATED SNOMED Code(s): 64569559 Plan: Myocardial infraction is ruled out. Question need for recurrent type cardiac testing. Anticipate discharge to in the next 24 hours. See orders otherwise.
[2017-12-13] MEDS ORDERED: LORATADINE 10 MG TAB PO SCH (09:00)
[2017-12-13] MEDS ORDERED: METOPROLOL SUCCINATE (ER) 100 MG TAB.ER.24H PO SCH (09:00)
[2017-12-13] MEDS ORDERED: LISINOPRIL 10 MG TAB PO SCH (09:00)
[2017-12-13] MEDS ORDERED: ATORVASTATIN 20 MG TAB PO SCH (09:00)
[2017-12-13] MEDS ORDERED: ASPIRIN 325 MG TAB PO SCH (09:00)
--- NOTE | 2017-12-13 10:15 | P.CRDCN ---
History of Present Illness Consult date: 12/13/17 History of present illness: Mr. Leroy is a pleasant 51-year-old male past medical history significant for hypertension, dyslipidemia, arthritis, chronic back pain and chronic tobacco use. He sees Dr. Briseno in the office. We have been asked to see him in consultation for chest pain. He states over the last couple days he has been experiencing symptoms of tight chest pain in the left precordial region with no specific aggravating or alleviating factors. He also has been having diarrhea and vomiting. He said he has been vomiting where is continually dry heaving for periods up to 60 minutes at a time. His pain is reproducible on palpation of his chest. The pain is not radiating to the arm, back, neck of jaw. He denies associated shortness of breath or diaphoresis. He does feel symptoms of dizziness and palpitations at times. He was here in October with symptoms of chest pain that were evaluated with a Lexiscan stress test which was negative for reversible cardiac ischemia. At that time he had a CTA that revealed a dilated aortic root aneurysm at 5.1x5.3 cm. He has had an evaluation from CT surgery and the recommendation is follow up CT in 4 months to further assess if this is chronic stable or growing in size. CT was performed on this admission and reveals aortic root measuring 4.8 x 4.8 cm with no pulmonary embolism. EKG on arrival with incomplete right bundle branch block pattern and nonspecific ST changes noted in the precordial leads which is consistent with previous EKGs. Laboratory data reviewed, hemoglobin 15.3, platelets 230, d-dimer 0.65, sodium 140, potassium 3.7, magnesium 1.9, cardiac enzymes negative 3, LDL 66. Current medications include Toprol 100 mg daily, lisinopril 10 mg daily and atorvastatin 20 mg daily. He also takes Ambien, Protonix, Robaxin, Synthroid, Motrin, Valium, [place] and Zyrtec. Most recent echocardiogram reveals preserved left ventricular systolic function with ejection fraction 50-55%, mild to moderate aortic regurgitation and moderate concentric left ventricular hypertrophy. Review of Systems At the time of my exam: CONSTITUTIONAL: Denies fever. Denies chills. EYES: Denies blurred vision. Denies vision changes. Denies eye pain. EARS, NOSE, MOUTH & THROAT: Denies headache. Denies sore throat. Denies ear pain. CARDIOVASCULAR: Denies chest pain. Denies shortness of breath. Denies orthopnea. Denies PND. Denies palpitations. RESPIRATORY: Denies cough. GASTROINTESTINAL: Denies abdominal pain. Denies diarrhea. Denies constipation. Denies nausea. Denies vomiting. MUSCULOSKELETAL: Complains of chronic back pain. INTEGUMENTARY: Denies pruitis. Denies rash. NEUROLOGIC: Denies numbness. Denies tingling. Denies weakness. PSYCHIATRIC: Denies anxiety. Denies depression. ENDOCRINE: Denies fatigue. Denies weight change. Denies polydipsia. Denies polyurina. GENITOURINARY: Denies burning, hematuria or urgency with micturation. HEMATOLOGIC: Denies history of anemia. Denies bleeding. Past Medical History Past Medical History: GERD/Reflux, Hyperlipidemia, Hypertension, Osteoarthritis (OA), Thyroid Disorder Additional Past Medical History / Comment(s): Arthritis bilateral shoulders, bilateral knees and low back, chronic low back pain, nephrolithiasis, hypothyroid. History of Any Multi-Drug Resistant Organisms: None Reported Past Surgical History: Heart Catheterization, Hernia Repair, Orthopedic Surgery Additional Past Surgical History / Comment(s): CARDIAC CATH 1990s, R INGUINAL HERNIA REPAIR, BILATERAL KNEE ARTHROSCOPIES, CYSTO/URETERAL CATHETER/PNCL. Past Anesthesia/Blood Transfusion Reactions: No Reported Reaction Smoking Status: Current every day smoker - Past Family History Father Family Medical History: Coronary Artery Disease (CAD), Myocardial Infarction ([place] ) Additional Family Medical History / Comment(s): FATHER HAD A [place] AT THE AGE OF 56YRS. HE IS STILL LIVING. Mother Additional Family Medical History / Comment(s): MOTHER FROM A STAPH INFECTION. Medications and Allergies Home Medications Medication Instructions Recorded Confirmed Type Atorvastatin [Lipitor] 20 mg PO DAILY 10/22/17 12/12/17 History Cetirizine HCl [Zyrtec] 10 mg PO DAILY 10/22/17 12/12/17 History Diazepam [Valium] 5 mg PO TID PRN 10/22/17 12/12/17 History Hydrocodone/Acetaminophen [[place] 1 tab PO Q6H PRN 10/22/17 12/12/17 History 10-325] Ibuprofen [Motrin] 800 mg PO AC-TID 10/22/17 12/12/17 History Levothyroxine Sodium [Synthroid] 137 mcg PO DAILY 10/22/17 12/12/17 History Lidocaine 5% Oint [Xylocaine 5% 1 applic TOPICAL BID PRN 10/22/17 12/12/17 History Oint] Methocarbamol [Robaxin] 750 mg PO Q8H PRN 10/22/17 12/12/17 History Metoprolol Succinate [Toprol XL] 100 mg PO DAILY 10/22/17 12/12/17 History Zolpidem [Ambien] 5 mg PO HS 10/22/17 12/12/17 History Lisinopril [Zestril] 10 mg PO DAILY 12/12/17 12/12/17 History Pantoprazole Sodium [Protonix] 20 mg PO DAILY 12/12/17 12/12/17 History Allergies Allergy/AdvReac Type Severity Reaction Status Date / Time dexamethasone Allergy Unknown Verified 12/12/17 09:25 Physical Exam Vitals: Vital Signs Temp Pulse Pulse Resp BP BP BP 12/13/17 07:50 98.0 F 75 18 112/58 12/13/17 03:47 98.0 F 73 18 121/63 12/12/17 23:51 98.7 F 88 18 145/87 12/12/17 23:47 16 12/12/17 20:00 16 12/12/17 19:42 98.0 F 78 16 197/107 12/12/17 16:19 97.5 F L 70 18 170/95 12/12/17 14:25 97.4 F L 73 18 167/97 12/12/17 13:00 97.5 F L 70 16 184/90 12/12/17 11:42 97.6 F 61 19 142/87 12/12/17 10:55 65 18 136/76 12/12/17 09:57 63 18 138/70 Pulse Ox 12/13/17 07:50 100 12/13/17 03:47 96 12/12/17 23:51 97 12/12/17 23:47 12/12/17 20:00 12/12/17 19:42 99 12/12/17 16:19 96 12/12/17 14:25 98 12/12/17 13:00 97 12/12/17 11:42 99 12/12/17 10:55 97 12/12/17 09:57 98 Intake and Output 04/26/18 04/27/18 04/27/18 22:59 06:59 14:59 Intake Total 278.22 187.633 Balance 278.22 187.633 Intake: Intake, IV Titration 178.22 187.633 Amount Heparin Sod,Pork in 0.45% 178.22 187.633 NaCl 25,000 unit In 0.45 % NaCl 1 500ml.bag @ 10 UNITS/KG/HR 19.95 mls/hr IV .Q24H [facility] Rx#: [id number] Oral 100 Other: # Voids 1 Blood pressure 112/58 heart rate 75 afebrile maintaining oxygen saturation on nasal cannula 2 L. GENERAL: This is a 51-year-old male in no apparent distress at the time of my examination. HEENT: Head is atraumatic, normocephalic. Pupils are equal, round. Sclerae anicteric. Conjunctivae are clear. Mucous membranes of the mouth are moist. Neck is supple. There is no jugular venous distention. No carotid bruit is heard. LUNGS: Clear to auscultation no wheezes, rales or rhonchi. No chest wall tenderness is noted on palpation or with deep breathing. HEART: Regular rate and rhythm without murmurs, rubs or gallops. S1 and S2 heard. ABDOMEN: Soft, nontender. Bowel sounds are heard. No organomegaly noted. EXTREMITIES: No evidence of peripheral edema and no calf tenderness noted. VASCULAR: Radial and dorsalis pedis pulses palpated, no evidence of clubbing. NEUROLOGIC: Patient is awake, alert and oriented x3. Results 12/12/17 09:30 12/12/17 09:30 Cardiac Enzymes 12/12/17 12/12/17 12/12/17 Range/Units 09:30 09:30 14:58 AST 35 (17-59) U/L CK-MB (CK-2) 0.6 0.6 (0.0-2.4) ng/mL Troponin I <0.012 <0.012 (0.000-0.034) ng/mL 12/12/17 Range/Units 20:29 AST (17-59) U/L CK-MB (CK-2) 0.6 (0.0-2.4) ng/mL Troponin I <0.012 (0.000-0.034) ng/mL Coagulation 12/12/17 12/12/17 12/13/17 Range/Units 09:30 20:29 05:24 PT 10.6 (9.0-12.0) sec APTT 22.3 26.4 31.8 H (22.0-30.0) sec Lipids 12/12/17 Range/Units 09:30 Triglycerides 170 H (<150) mg/dL Cholesterol 145 (<200) mg/dL HDL Cholesterol 45 (40-60) mg/dL CBC 12/12/17 Range/Units 09:30 WBC 6.7 (3.8-10.6) k/uL RBC 4.93 (4.30-5.90) m/uL Hgb 15.3 (13.0-17.5) gm/dL Hct 44.9 (39.0-53.0) % Plt Count 230 (150-450) k/uL Comprehensive Metabolic Panel 12/12/17 Range/Units 09:30 Sodium 140 (137-145) mmol/L Potassium 3.7 (3.5-5.1) mmol/L Chloride 101 (98-107) mmol/L Carbon Dioxide 21 L (22-30) mmol/L BUN 12 (9-20) mg/dL Creatinine 0.85 (0.66-1.25) mg/dL Glucose 142 H (74-99) mg/dL Calcium 10.0 (8.4-10.2) mg/dL AST 35 (17-59) U/L ALT 31 (21-72) U/L Alkaline Phosphatase 64 (38-126) U/L Total Protein 7.8 (6.3-8.2) g/dL Albumin 4.9 (3.5-5.0) g/dL Current Medications Generic Name Dose Route Start Last Admin Trade Name Freq PRN Reason Stop Dose Admin Hydrocodone Bitart/Acetaminophen 1 each 12/12/17 12:49 12/13/17 09:20 [place] 10 PO 1 each Q6H PRN Administration Pain Al Hydroxide/Mg Hydroxide 30 ml 12/12/17 20:43 12/12/17 22:52 Maalox PO 30 ml Q4HR PRN Administration GI Upset Aspirin 325 mg 12/13/17 09:00 12/13/17 09:09 Aspirin PO 325 mg DAILY [facility] Administration Atorvastatin Calcium 20 mg 12/13/17 09:00 12/13/17 09:09 Lipitor PO 20 mg DAILY [facility] Administration Diazepam 5 mg 12/12/17 12:49 Valium PO TID PRN Anxiety Heparin Sodium/Sodium Chloride 500 mls @ 19.95 mls/hr 12/12/17 13:00 06:00 25,000 unit/ Sodium Chloride IV 16 units/kg/hr .Q24H ELO[facility] 31.93 mls/hr Protocol Titration 10 UNITS/KG/HR Levothyroxine Sodium 137 mcg 12/13/17 06:30 12/13/17 05:20 Synthroid PO 137 mcg DAILY@0630 [facility] Administration Lidocaine 1 applic 12/12/17 12:49 Xylocaine 5% Oint TOPICAL BID PRN Pain Lisinopril 10 mg 12/13/17 09:00 12/13/17 09:09 Zestril PO 10 mg DAILY [facility] Administration Loratadine 10 mg 12/13/17 09:00 12/13/17 09:09 Claritin PO 10 mg DAILY [facility] Administration Methocarbamol 750 mg 12/12/17 12:49 12/12/17 19:35 Robaxin PO 750 mg Q8H PRN Administration Muscle Spasm Metoprolol Succinate 100 mg 12/13/17 09:00 12/13/17 09:09 Toprol Xl PO 100 mg DAILY [facility] Administration Miscellaneous Information 1 each 12/12/17 10:46 Rx Info: Iv Contrast Was Given MISCELLANE 12/14/17 10:46 DAILY PRN Per Protocol Nitroglycerin 1 inch 12/12/17 18:00 12/13/17 04:56 Nitro-Bid Oint TOPICAL Not Given Q6HR [facility] Nitroglycerin 0.4 mg 12/12/17 12:47 Nitrostat SUBLINGUAL Q5M PRN Chest Pain Pantoprazole Sodium 20 mg 12/13/17 07:30 12/13/17 09:09 Protonix PO 20 mg AC-BRKFST [facility] Administration Zolpidem Tartrate 5 mg 12/12/17 21:00 12/12/17 22:54 Ambien PO 5 mg HS PRN Administration Insomnia Intake and Output 12/12/17 12/13/17 12/13/17 22:59 06:59 14:59 Intake Total 278.22 187.633 Balance 278.22 187.633 Intake: Intake, IV Titration 178.22 187.633 Amount Heparin Sod,Pork in 0.45% 178.22 187.633 NaCl 25,000 unit In 0.45 % NaCl 1 500ml.bag @ 10 UNITS/KG/HR 19.95 mls/hr IV .Q24H [facility] Rx#: [id number] Oral 100 Other: # Voids 1 12/12/17 09:30 12/12/17 09:30 Assessment and Plan Assessment: ASSESSMENT 1. Chest pain, atypical. Acute coronary event has been ruled out. The pain is reproducible on palpation. Most likely related to persistent vomiting causing a musckuloskeletal strain. 2. Hypertension 3. Dyslipidemia 4. Gastroesophageal reflux disease 5. Chronic back pain 6. Opiate dependence 7. Chronic tobacco abuse 8. Dilated arotic root 4.[address], decreased from previous in October PLAN Obtain acute coronary event has been ruled out. Discontinue heparin infusion. No further cardiac work-up required. Continue with lisinopril, atorvastatin and toprol as was previously ordered. Follow-up with Dr. Briseno in 2 next regularly schedule appointment. Thank you kindly for this consultation. The above impression and plan of care have been discussed and directed by the signing physician. Aleyda Fajardo, nurse practitioner, acting as scribe for signing physician.
[2017-12-13 11:55] VITALS: BP 134/81; PULSE 62; TEMP 97.5
== END 2017-12-13 15:52 | disposition home or self-care (01) ==
LOC: EC 08:34 → 3OBS 12:47
PROVIDERS: ADMIT Family Medicine; ATTEND Family Medicine
DX: R07.89 Other chest pain (principal); R11.2 Nausea with vomiting, unspecified; M19.012 Primary osteoarthritis, left shoulder; M19.011 Primary osteoarthritis, right shoulder; M17.0 Bilateral primary osteoarthritis of knee; M54.5 Low back pain; E03.9 Hypothyroidism, unspecified; I10 Essential (primary) hypertension; F17.200 Nicotine dependence, unspecified, uncomplicated; G89.29 Other chronic pain; F11.20 Opioid dependence, uncomplicated; E78.5 Hyperlipidemia, unspecified; G47.00 Insomnia, unspecified; K21.9 Gastro-esophageal reflux disease without esophagitis; Z79.890 Hormone replacement therapy; Z79.899 Other long term (current) drug therapy; Z88.8 Allergy status to other drugs, medicaments and biological substances; Z87.442 Personal history of urinary calculi; Z82.49 Family history of ischemic heart disease and other diseases of the circulatory system
CPT/HCPCS: 96375 ×2; 96376 ×2; 96361 ×6; 99291 ×2; 96365; 96366 ×2; 36415; 93005; 85379; 80061; 80053; 82150; 82550; 82553; 83690; 83735; 84484; 85025; 85610; 85730 ×2; 71046; 71275; G0378 ×2; J1644 ×2; J2405; Q9967

== ENCOUNTER 2018-02-19 20:03 | Emergency (ER) | payer OTHER ==
[2018-02-19 20:15] VITALS: TEMP 97.8
--- NOTE | 2018-02-19 21:21 | XR ---
EXAMINATION TYPE: XR chest 2V DATE OF EXAM: 02/19/2018 COMPARISON: 12/12/2017 HISTORY: Chest pain TECHNIQUE: Frontal and lateral views of the chest are obtained. FINDINGS: There is no heart failure nor confluent pneumonic infiltrate. Costophrenic angles are skyler r. There are chest leads. Bony thorax is intact. IMPRESSION: No active cardiopulmonary disease. Normal heart. There is improved inspiration compared to old exam.
[2018-02-19 21:22] LABS: Basophils # (A) 0.1 k/uL (0-0.2); Basophils % (A) 1 %; Eosinophils # (A) 0.1 k/uL (0-0.7); Eosinophils % (A) 1 %; HCT 42.7 % (39.0-53.0); HGB 14.5 gm/dL (13.0-17.5); Lymphocytes # (A) 1.7 k/uL (1.0-4.8); Lymphocytes % (A) 25 %; MCH 31.1 pg (25.0-35.0); MCHC 33.9 g/dL (31.0-37.0); MCV 91.7 fL (80.0-100.0); Mean Platelet Volume 6.9; Monocytes # (A) 0.3 k/uL (0-1.0); Monocytes % (A) 5 %; Neutrophils # (A) 4.5 k/uL (1.3-7.7); Neutrophils % (A) 67 %; Platelet Count 180 k/uL (150-450); RBC 4.65 m/uL (4.30-5.90); RDW 12.8 % (11.5-15.5); WBC 6.7 k/uL (3.8-10.6)
[2018-02-19 21:30] LABS: Anion Gap 13 mmol/L; Calcium 9.8 mg/dL (8.4-10.2); Carbon Dioxide 22 mmol/L (22-30); Chloride 103 mmol/L (98-107); Glucose 99 mg/dL (74-99); Sodium 138 mmol/L (137-145)
[2018-02-19 21:42] LABS: Blood Urea Nitrogen 11 mg/dL (9-20)
[2018-02-19] MEDS ORDERED: HYDROcodone/APAP 5-325MG 1 EACH TAB PO STA (23:37)
--- NOTE | 2018-02-19 23:44 | ED ---
Chest Pain HPI - General Chief Complaint: Chest Pain Stated Complaint: Chest Pain Source: patient Mode of arrival: ambulatory Limitations: no limitations - History of Present Illness Initial Comments: Dictation was produced using [employer] dictation software. please excuse any grammatical, word or spelling errors. Chief Complaint: Patient is a 52-year-old male with past medical history of cervical radiculopathy, chronic knee pain, chronic back pain presents with chest pain and back pain. History of Present Illness: 52-year-old male presents with chest pain and back pain. Patient initially reports chest pain to the left chest that is worse with left upper extremity movement. Patient denies any crushing substernal chest pressure. He describes the pain as sharp. Pain is worse with regulation of the left upper extremity. Patient also secondary complaint of right back pain. Patient reports that he was recently taken off his pain regimen. He does see Dr. David who manages his pain symptoms. Patient states he had a negative cardiac stress test back in October. Patient does have a history of opiate dependence. Denies any constitutional symptoms. Patient reports having history of chronic pain that needs surgery. He has not been able to get surgeries yet. Past Medical History: Hypertension, tobacco abuse Past Surgical History:[reviewed, none to report] Social History: Negative tobacco Family History: reviewed and noncontributory The ROS documented in this emergency department record has been reviewed and confirmed by me. Those systems with pertinent positive or negative responses have been documented in the HPI. All other systems are other negative and/or noncontributory. - Related Data Home Medications Medication Instructions Recorded Confirmed Atorvastatin [Lipitor] 20 mg PO DAILY 10/22/17 12/12/17 Cetirizine HCl [Zyrtec] 10 mg PO DAILY 10/22/17 12/12/17 Diazepam [Valium] 5 mg PO TID PRN 10/22/17 12/12/17 Hydrocodone/Acetaminophen [Glide 1 tab PO Q6H PRN 10/22/17 12/12/17 10-325] Ibuprofen [Motrin] 800 mg PO AC-TID 10/22/17 12/12/17 Levothyroxine Sodium [Synthroid] 137 mcg PO DAILY 10/22/17 12/12/17 Lidocaine 5% Oint [Xylocaine 5% 1 applic TOPICAL BID PRN 10/22/17 12/12/17 Oint] Methocarbamol [Robaxin] 750 mg PO Q8H PRN 10/22/17 12/12/17 Metoprolol Succinate [Toprol XL] 100 mg PO DAILY 10/22/17 12/12/17 Zolpidem [Ambien] 5 mg PO HS 10/22/17 12/12/17 Lisinopril [Zestril] 10 mg PO DAILY 12/12/17 12/12/17 Pantoprazole Sodium [Protonix] 20 mg PO DAILY 12/12/17 12/12/17 Previous Rx's Medication Instructions Recorded HYDROcodone/APAP 5-325MG [Glide 1 tab PO Q6HR PRN 3 Days #6 tab 02/19/18 5-325] Allergies Allergy/AdvReac Type Severity Reaction Status Date / Time dexamethasone Allergy Unknown Verified 12/12/17 09:25 Review of Systems ROS Statement: Those systems with pertinent positive or pertinent negative responses have been documented in the HPI. ROS Other: All systems not noted in ROS Statement are negative. Past Medical History Past Medical History: GERD/Reflux, Hyperlipidemia, Hypertension, Osteoarthritis (OA), Thyroid Disorder Additional Past Medical History / Comment(s): Arthritis bilateral shoulders, bilateral knees and low back, chronic low back pain, nephrolithiasis, hypothyroid. History of Any Multi-Drug Resistant Organisms: None Reported Past Surgical History: Heart Catheterization, Hernia Repair, Orthopedic Surgery Additional Past Surgical History / Comment(s): CARDIAC CATH 1990s, R INGUINAL HERNIA REPAIR, BILATERAL KNEE ARTHROSCOPIES, CYSTO/URETERAL CATHETER/PNCL. Past Anesthesia/Blood Transfusion Reactions: No Reported Reaction Past Psychological History: No Psychological Hx Reported Smoking Status: Current every day smoker - Past Family History Father Family Medical History: Coronary Artery Disease (CAD), Myocardial Infarction ([place] ) Additional Family Medical History / Comment(s): FATHER HAD A [place] AT THE AGE OF 56YRS. HE IS STILL LIVING. Mother Additional Family Medical History / Comment(s): MOTHER FROM A STAPH INFECTION. General Exam - General Exam Comments Initial Comments: Vitals: Signs upon arrival are within acceptable limits. PHYSICAL EXAM: General Impression: Alert and oriented x3, not in acute distress HEENT: Normocephalic atraumatic, extra-ocular movements intact, pupils equal and reactive to light bilaterally, mucous membranes moist. Cardiovascular: Heart regular rate and rhythm, S1&S2 audible, no murmurs, rubs or gallops Chest: Lungs clear to auscultation bilaterally, no rhonchi, no wheeze, no rales , tenderness to palpation over the left anterior chest reproduced with palpation. Abdomen: Bowel sounds present, abdomen soft, non-tender, non-distended, no organomegaly Musculoskeletal: Pulses present and equal in all extremities, no peripheral edema, tenderness to palpation of the right posterior superior iliac spine and right lower soft tissue about the level of L5 on the right side Motor: Power 5/5 bilaterally, no focal deficits noted Neurological: CN II-XII grossly intact, no focal motor or sensory deficits noted Skin: Intact with no visualized rashes Psych: Normal affect and mood Limitations: no limitations Course Vital Signs 02/19/18 02/19/18 02/19/18 20:12 20:48 21:15 Temperature 97.8 F Pulse Rate 76 72 65 Respiratory 18 18 20 Rate Blood Pressure 161/85 158/90 162/90 O2 Sat by Pulse 99 98 97 Oximetry 02/19/18 22:46 Temperature Pulse Rate 65 Respiratory 18 Rate Blood Pressure 142/68 O2 Sat by Pulse 98 Oximetry Chest Pain MDM - [facility] ED course: 52-year-old male with past medical history of opiate dependence and chronic pain presents with atypical chest pain and right back strain. Laboratory evaluation was obtained given that patient has a history of smoking and does have chest pain. EKGs benign. Vital signs are stable. Patient is well-appearing. Symptoms are reproducible with palpation to the same area. Patient had recent negative stress test in October. Laboratory evaluation obtained. CBC unremarkable. Basic metabolic panel is unremarkable. O2 sat troponins are negative. Chest x-ray shows no acute cardiopulmonary process. Patient is more concerned about his back pain service chest pain. Counseling on current guidelines to treating back pain was performed. He was told that early mobilization is the alfredo to improving his back pain. Patient did request some Glide pills and lidocaine patch. He promised to follow up with his primary care physician for outpatient management of his symptoms. Patient is understandable and agreeable to plan. Patient is told to return to the emergency Department with any worsening chest symptoms. Final impression: 1. Acute chest strain, 2. Back strain EKG Interpretation: A 12 lead EKG was obtained. It was interpreted by myself and attending physician. There is a P wave before every QRS complex. Rate is 72. Rhythm is, sinus rhythm, AK interval 140, Q synagogue 112, QTC 462. QT is not prolonged. No ST segment depression or elevation. Nonspecific findings of right bundle branch block without any ST or T-wave changes to indicate cardiac ischemia.. Overall, this EKG is unremarkable Disposition Clinical Impression: Chest pain, Back strain Disposition: HOME SELF-CARE Instructions: Costochondritis (ED), Low Back Strain (ED) Prescriptions: HYDROcodone/APAP 5-325MG [Glide 5-325] 1 tab PO Q6HR PRN 3 Days #6 tab PRN Reason: Pain Is patient prescribed a controlled substance at d/c from ED?: Yes When asked, does pt state using other controlled substances?: No If prescribed controlled substance>3 days was MAPS reviewed?: Prescribed <3 Days Referrals: Zan David MD [Primary Care Provider] - 1-2 days Time of Disposition: 23:47
[2018-02-19] MEDS ORDERED: LIDOCAINE 5% PATCH TOPICAL ONE (23:45)
[2018-02-20] MEDS ORDERED: KETOROLAC 30 MG/ML 1 ML VIAL IVP SCH
[2018-02-20 00:11] VITALS: BP 142/71; PULSE 69; RESP 17
== END 2018-02-20 00:49 | disposition home or self-care (01) ==
LOC: EC 20:03
DX: S39.012A Strain of muscle, fascia and tendon of lower back, initial encounter (principal); R07.89 Other chest pain; K21.9 Gastro-esophageal reflux disease without esophagitis; E78.5 Hyperlipidemia, unspecified; I10 Essential (primary) hypertension; E03.9 Hypothyroidism, unspecified; M46.96 Unspecified inflammatory spondylopathy, lumbar region; M19.012 Primary osteoarthritis, left shoulder; M19.011 Primary osteoarthritis, right shoulder; M17.0 Bilateral primary osteoarthritis of knee; F17.200 Nicotine dependence, unspecified, uncomplicated; Z95.818 Presence of other cardiac implants and grafts; Z82.49 Family history of ischemic heart disease and other diseases of the circulatory system; Z79.1 Long term (current) use of non-steroidal anti-inflammatories (NSAID); Z79.899 Other long term (current) drug therapy; Z88.8 Allergy status to other drugs, medicaments and biological substances
CPT/HCPCS: 36415; 93005; 80048; 84484; 85025; 71046; 99285; 96374; J1885

== ENCOUNTER 2018-03-14 08:24 | Day surgery (SDC) | payer OTHER ==
[2018-03-11 13:16] VITALS: BMI 30.5
[~2018-03-14 08:24] MED LIST: LACTATED RINGERS 1,000 ML IV SCH; LIDOCAINE 1% 20 ML VIAL (10MG/ML) FOR IV START INTRADERMA PRN; MIDAZOLAM 2 MG/2 ML VIAL IV PRN
[2018-03-14 08:42] VITALS: RESP 16; TEMP 98
[2018-03-14] MEDS ORDERED: LIDOCAINE 1% INJ 10MG/ML (20 ML MDV) ONE (09:06)
[2018-03-14] MEDS ORDERED: PROPOFOL 10 MG/ML 20 ML VIAL IV ONE (09:06)
--- NOTE | 2018-03-14 09:17 | P.GSHP ---
History of Present Illness H&P Date: 03/14/18 Chief Complaint: Chest pain, GERD Patient severe chest pains recently and belching. Some reflux symptoms as well. Burning at times. Slightly better with starting antiacids. Past Medical History Past Medical History: Chest Pain / Angina, GERD/Reflux, Hyperlipidemia, Hypertension, Osteoarthritis (OA), Thyroid Disorder Additional Past Medical History / Comment(s): Arthritis bilateral shoulders, bilateral knees and low back, chronic low back pain, nephrolithiasis, hypothyroid. History of Any Multi-Drug Resistant Organisms: None Reported Past Surgical History: Heart Catheterization, Hernia Repair, Orthopedic Surgery Additional Past Surgical History / Comment(s): CARDIAC CATH 1990s, R INGUINAL HERNIA REPAIR, BILATERAL KNEE ARTHROSCOPIES, CYSTO/URETERAL CATHETER/ lithotripsy Past Anesthesia/Blood Transfusion Reactions: No Reported Reaction Smoking Status: Current every day smoker - Past Family History Father Family Medical History: Coronary Artery Disease (CAD), Myocardial Infarction ([place] ) Additional Family Medical History / Comment(s): FATHER HAD A CA AT THE AGE OF 56YRS. HE IS STILL LIVING. Mother Additional Family Medical History / Comment(s): MOTHER FROM A STAPH INFECTION. Medications and Allergies Home Medications Medication Instructions Recorded Confirmed Type Cetirizine HCl [Zyrtec] 10 mg PO DAILY PRN 10/22/17 03/11/18 History Hydrocodone/Acetaminophen [[place] 1 tab PO Q6H PRN 10/22/17 03/11/18 History 10-325] Ibuprofen [Motrin] 800 mg PO AC-BID 10/22/17 03/14/18 History Levothyroxine Sodium [Synthroid] 137 mcg PO DAILY 10/22/17 03/11/18 History Methocarbamol [Robaxin] 750 mg PO Q8H PRN 10/22/17 03/11/18 History Metoprolol Succinate [Toprol XL] 100 mg PO DAILY 10/22/17 03/14/18 History Lisinopril [Zestril] 10 mg PO DAILY 12/12/17 03/11/18 History Pantoprazole Sodium [Protonix] 20 mg PO DAILY 12/12/17 03/11/18 History Allergies Allergy/AdvReac Type Severity Reaction Status Date / Time dexamethasone Allergy Unknown Verified 03/14/18 08:44 Surgical - Exam Vital Signs Temp Pulse Resp BP Pulse Ox 98.0 F 65 16 170/103 97 03/14/18 08:41 03/14/18 08:41 03/14/18 08:41 03/14/18 08:41 03/14/18 08:41 Physical exam: General: Well-developed, well-nourished HEENT: Normocephalic, sclerae nonicteric Abdomen: Nontender, nondistended Extremities: No edema Neuro: Alert and oriented Assessment and Plan (1) Chest pain Narrative/Plan: Will proceed with upper endoscopy at this time Current Visit: No Status: Acute Code(s): R07.9 - CHEST PAIN, UNSPECIFIED SNOMED Code(s): 09248546
--- NOTE | 2018-03-14 09:24 | P.PCN ---
Date of Procedure: 03/14/18 Procedure(s) Performed: Preoperative Dx: GERD, chest pain Postoperative Dx: Gastritis with small erosions, hiatal hernia Procedure: EGD with Bx Anesthesia: Sedation Endoscopist: Dr. Stewart Specimens: Antrum Endoscopic Procedure: The patient was on the endoscopy table in the left decubitus position. The Olympus gastroscope was inserted into the oropharynx and passed under direct visualization to the region of the third portion of the duodenum. From that point the scope was slowly withdrawn inspecting all surfaces carefully. There were no neoplastic inflammatory or polypoid lesions throughout the duodenum. The pylorus was widely patent. The stomach was carefully inspected. There was gastritis present with multiple small erosions in the prepyloric and antral region. A biopsy of the antrum took place to rule out H. pylori. Retroflexion revealed a small hiatal hernia. The esophagus was then carefully examined. There were no neoplastic inflammatory or polypoid lesions throughout the visualized esophagus. The patient was then taken to the recovery room in stable condition per anesthesia guidelines. Recommendations: Continue antiacid therapy. Await biopsy results. Recent chest pain may be on the basis of GERD symptoms.
[2018-03-14 09:58] VITALS: BP 175/97; PULSE 58
== END 2018-03-14 10:01 | disposition home or self-care (01) ==
LOC: ORWHC2ENDO 08:24
PROVIDERS: ATTEND Surgery
DX: K29.50 Unspecified chronic gastritis without bleeding (principal); K44.9 Diaphragmatic hernia without obstruction or gangrene; K25.9 Gastric ulcer, unspecified as acute or chronic, without hemorrhage or perforation; I10 Essential (primary) hypertension; K21.9 Gastro-esophageal reflux disease without esophagitis; G89.29 Other chronic pain; M19.012 Primary osteoarthritis, left shoulder; M19.011 Primary osteoarthritis, right shoulder; E78.5 Hyperlipidemia, unspecified; F17.210 Nicotine dependence, cigarettes, uncomplicated; E03.9 Hypothyroidism, unspecified; Z87.442 Personal history of urinary calculi; Z82.49 Family history of ischemic heart disease and other diseases of the circulatory system; Z88.8 Allergy status to other drugs, medicaments and biological substances; Z79.1 Long term (current) use of non-steroidal anti-inflammatories (NSAID); Z79.899 Other long term (current) drug therapy
CPT/HCPCS: 88305; 43239; J2001; J2704

== ENCOUNTER 2018-04-20 17:57 | Emergency (ER) | payer OTHER ==
[2018-04-20 18:07] VITALS: TEMP 98.1
[2018-04-20] MEDS ORDERED: KETOROLAC 30 MG/ML 1 ML VIAL IVP STA (18:15)
[2018-04-20] MEDS ORDERED: ORPHENADRINE 30 MG/ML 2 ML VIAL IVP STA (18:15)
[2018-04-20] MEDS ORDERED: MORPHINE SULFATE 2 MG/ML SYRINGE IVP STA (18:15)
--- NOTE | 2018-04-20 18:19 | ED ---
Back Pain HPI - General Chief Complaint: Back Pain/Injury Stated Complaint: Back injury Time Seen by Provider: 04/20/18 18:08 Source: patient Limitations: no limitations - History of Present Illness Initial Comments: 52-year-old male patient presents to emergency department today for evaluation of acute low back pain with radiation down the right leg to his foot. Patient states that around 11 this morning is helping work on a car when he wrenched his back and felt a popping sensation in the low back. Patient states that since then he has had severe low back pain and a burning/tingling sensation down the back of his leg all the way to his foot. Patient states he is also having some burning and tingling in his left foot. Patient states he has lost both bowel and bladder control. Patient denies any saddle anesthesia. States he does have a history of chronic low back pain but this is much worse than his usual symptoms. He states he did fall at time of injury however denies hitting his head or losing consciousness. Denies any other injuries. Patient denies any headache, neck pain, chest pain, shortness of breath, dizziness, weakness, abdominal pain, nausea, or vomiting. - Related Data Home Medications Medication Instructions Recorded Confirmed Cetirizine HCl [Zyrtec] 10 mg PO DAILY PRN 10/22/17 03/11/18 Hydrocodone/Acetaminophen [[place] 1 tab PO Q6H PRN 10/22/17 03/11/18 10-325] Ibuprofen [Motrin] 800 mg PO AC-BID 10/22/17 03/14/18 Levothyroxine Sodium [Synthroid] 137 mcg PO DAILY 10/22/17 03/11/18 Methocarbamol [Robaxin] 750 mg PO Q8H PRN 10/22/17 03/11/18 Metoprolol Succinate [Toprol XL] 100 mg PO DAILY 10/22/17 03/14/18 Lisinopril [Zestril] 10 mg PO DAILY 12/12/17 03/11/18 Pantoprazole Sodium [Protonix] 20 mg PO DAILY 12/12/17 03/11/18 Previous Rx's Medication Instructions Recorded Diazepam [Valium] 5 mg PO Q8HR PRN 3 Days #9 tab 04/20/18 Allergies Allergy/AdvReac Type Severity Reaction Status Date / Time dexamethasone Allergy Unknown Verified 03/14/18 08:44 Review of Systems ROS Statement: Those systems with pertinent positive or pertinent negative responses have been documented in the HPI. ROS Other: All systems not noted in ROS Statement are negative. Past Medical History Past Medical History: GERD/Reflux, Hyperlipidemia, Hypertension, Osteoarthritis (OA), Thyroid Disorder Additional Past Medical History / Comment(s): Arthritis bilateral shoulders, bilateral knees and low back, chronic low back pain, nephrolithiasis, hypothyroid. History of Any Multi-Drug Resistant Organisms: None Reported Past Surgical History: Heart Catheterization, Hernia Repair, Orthopedic Surgery Additional Past Surgical History / Comment(s): CARDIAC CATH 1990s, R INGUINAL HERNIA REPAIR, BILATERAL KNEE ARTHROSCOPIES, CYSTO/URETERAL CATHETER/PNCL. Past Anesthesia/Blood Transfusion Reactions: No Reported Reaction Past Psychological History: No Psychological Hx Reported Smoking Status: Current every day smoker Past Alcohol Use History: Occasional Past Drug Use History: None Reported - Past Family History Father Family Medical History: Coronary Artery Disease (CAD), Myocardial Infarction ([place] ) Additional Family Medical History / Comment(s): FATHER HAD A [place] AT THE AGE OF 56YRS. HE IS STILL LIVING. Mother Additional Family Medical History / Comment(s): MOTHER FROM A STAPH INFECTION. General Exam Limitations: no limitations General appearance: alert, in no apparent distress, other (This is a well- developed, well-nourished adult male patient in mild distress related to pain. Vital signs upon presentation are temperature 98.1F, pulse 76, respirations 16 , blood pressure 172/99, pulse ox 99% on room air.) Eye exam: Present: normal appearance, PERRL, EOMI. Absent: scleral icterus, conjunctival injection, periorbital swelling ENT exam: Present: normal exam, normal oropharynx, mucous membranes moist Neck exam: Present: normal inspection, full ROM, other (Nontender, no step-off, no deformity to firm midline palpation of the posterior cervical spine. Full range of motion without pain or limitation.). Absent: tenderness, meningismus, lymphadenopathy Respiratory exam: Present: normal lung sounds bilaterally. Absent: respiratory distress, wheezes, rales, rhonchi, stridor Cardiovascular Exam: Present: regular rate, normal rhythm, normal heart sounds. Absent: systolic murmur, diastolic murmur, rubs, gallop, clicks GI/Abdominal exam: Present: soft, normal bowel sounds. Absent: distended, tenderness, guarding, rebound, rigid Rectal exam: Present: normal rectal tone Extremities exam: Present: normal inspection, full ROM, normal capillary refill , other (Skin to the lower extremities is pink, warm, and dry. Cap refills less than 3 seconds. Pedal posttibial pulses are 2+ and equal bilaterally.). Absent: tenderness, pedal edema, joint swelling, calf tenderness Back exam: Present: vertebral tenderness (Lumbosacral) Neurological exam: Present: alert, oriented X3, CN II-XII intact Psychiatric exam: Present: normal affect, normal mood Skin exam: Present: warm, dry, intact, normal color. Absent: rash Course Vital Signs 04/20/18 04/20/18 18:04 21:08 Temperature 98.1 F Pulse Rate 76 74 Respiratory 16 18 Rate Blood Pressure 172/99 163/83 O2 Sat by Pulse 99 98 Oximetry Medical Decision Making - Medical Decision Making 52-year-old male patient presented to the emergency department today for complaints of increased low back pain after an injury today. Physical examination did reveal some lumbar tenderness. Patient was neurologically intact. There is reporting radiation of the pain down his right leg as well a some numbness or tingling to the right leg and both feet. CT of the lumbar spine was obtained and did show mild disc bulging at L5 to S1 as well as some spondylosis. Patient did receive several pain medications and muscle relaxers here in the emergency department, he is feeling somewhat better at time of discharge. He'll be discharged home with a prescription for Valium. He does have [place] 10 at home. He is instructed to continue taking his medications. He is instructed to follow-up with orthopedic patient financial specialist. He is instructed follow up with his primary care physician for recheck in 1-2 days. Return parameters discussed in detail. He verbalizes understanding and agrees with this plan. - Radiology Data Radiology results: report reviewed, image reviewed CT lumbar spine without contrast was obtained. The lumbar vertebrae abnormal alignment. There is mild spurring of the endplates anteriorly throughout the lumbar spine. There is small posterior disc herniation L5 to S1. There is no lumbar paraspinal mass. Posterior elements are intact. There is no spinal stenosis. There is mild facet arthropathy in the lower lumbar spine. Sacroiliac joints appear intact. There is no evidence of focal bone destruction. There is large calculus in the left kidney. This measures [address] Mayer shows mild spondylotic changes in lumbar spine. No fracture. [place]ag[place] calculus of the left kidney. Renal calculus is increased compared to 05/07/2012 exam. Disposition Clinical Impression: Acute exacerbation of chronic low back pain, Lumbar radiculopathy, Bulging lumbar disc Disposition: HOME SELF-CARE Condition: Good Instructions: Acute Low Back Pain (ED), Lumbar Radiculopathy (ED) Additional Instructions: Apply warm moist heat to the low back. Perform gentle range of motion exercises and he started to feel better. Take medications as directed. Follow- up with your primary care physician and the patient financial specialist for further evaluation. Return here immediately for any new, worsening, or concerning symptoms. Prescriptions: Diazepam [Valium] 5 mg PO Q8HR PRN 3 Days #9 tab PRN Reason: muscle spasm/back pain Is patient prescribed a controlled substance at d/c from ED?: Yes When asked, does pt state using other controlled substances?: Yes If prescribed controlled substance>3 days was MAPS reviewed?: Prescribed <3 Days Referrals: Elyssa Quinn DO [Primary Care Provider] - 1-2 days Time of Disposition: 21:16
--- NOTE | 2018-04-20 19:18 | CT ---
EXAMINATION TYPE: CT lumbar spine wo con DATE OF EXAM: 04/20/2018 7:03 PM COMPARISON: HISTORY: Low back pain with Right leg numbness CT DLP: 1324.9 mGycm Automated exposure control for dose reduction was used. Unenhanced CT of the lumbar spine was performed. Bone and soft tissue window settings are submitted as well as coronal and sagittal reconstructions. The lumbar vertebra have normal alignment. There is mild spurring of the endplates anteriorly through out the lumbar spine. There is small posterior disc herniation at L5-S1. There is no lumbar paraspina l mass. Posterior elements are intact. There is no spinal stenosis. There is mild facet arthropathy i n the lower lumbar spine. Sacroiliac joints appear intact. There is no evidence of focal bone destruc tion. There is a large calculus in the left kidney. This measures more than 2 cm. IMPRESSION: Mild spondylotic changes in the lumbar spine. No fracture. [place] calculus of the left kidney. Renal calculus is increased compared to 05/07/2012 exam.
[2018-04-20] MEDS ORDERED: HYDROmorphone 1 MG/ML 1 ML SYRINGE IVP STA (19:39)
[2018-04-20] MEDS ORDERED: ONDANSETRON 4 MG/2 ML VIAL IVP STA (19:50)
[2018-04-20 21:09] VITALS: BP 163/83; PULSE 74; RESP 18
[2018-04-20] MEDS ORDERED: DIAZEPAM 5 MG/ML 2 ML INJ IVP STA (21:09)
== END 2018-04-20 21:25 | disposition home or self-care (01) ==
LOC: EC 17:57
DX: M51.16 Intervertebral disc disorders with radiculopathy, lumbar region (principal); K21.9 Gastro-esophageal reflux disease without esophagitis; E78.5 Hyperlipidemia, unspecified; I10 Essential (primary) hypertension; M19.90 Unspecified osteoarthritis, unspecified site; E03.9 Hypothyroidism, unspecified; F17.200 Nicotine dependence, unspecified, uncomplicated; Z98.890 Other specified postprocedural states; Z79.1 Long term (current) use of non-steroidal anti-inflammatories (NSAID); Z79.899 Other long term (current) drug therapy; Z88.8 Allergy status to other drugs, medicaments and biological substances; X50.0XXA Overexertion from strenuous movement or load, initial encounter
CPT/HCPCS: 72131; 99284; 96374; 96375 ×5; J2360; J3360; J2405; J1885; J2270; J1170

== ENCOUNTER 2018-04-21 18:17 | Emergency (ER) | payer OTHER ==
[2018-04-21 18:25] VITALS: RESP 18
--- NOTE | 2018-04-21 18:46 | ED ---
Back Pain HPI - General Chief Complaint: Back Pain/Injury Stated Complaint: Back Pain & Trouble controlling bladder Time Seen by Provider: 04/21/18 18:27 Source: patient, RN notes reviewed Mode of arrival: wheelchair Limitations: no limitations - History of Present Illness Initial Comments: This is a 52-year-old male who presents to the emergency department with chief complaint of low back injury. Patient reports a history of chronic low back pain. Patient was seen here in the emergency department yesterday and states she was diagnosed with a L5 disc herniation. He states that yesterday morning he was helping his brother fix his car. He states that he bent over and lifted a tire causing acute pain to the right side of his low back. Patient states that he takes [place] at home and was prescribed Valium. Patient states that throughout the day today he has been unable to keep down any of his medications as he has been vomiting. He states that 4 times today he was incontinent of his bladder. Denies any bowel incontinence. He reports pain to the right side of his back with a burning intermittent pain shooting down the right leg to his calf. Denies any new injuries or trauma. Denies saddle paresthesias. Denies fevers or chills, chest pain or shortness breath, abdominal pain, dysuria or hematuria. - Related Data Home Medications Medication Instructions Recorded Confirmed Cetirizine HCl [Zyrtec] 10 mg PO DAILY PRN 10/22/17 03/11/18 Hydrocodone/Acetaminophen [[place] 1 tab PO Q6H PRN 10/22/17 03/11/18 10-325] Ibuprofen [Motrin] 800 mg PO AC-BID 10/22/17 03/14/18 Levothyroxine Sodium [Synthroid] 137 mcg PO DAILY 10/22/17 03/11/18 Methocarbamol [Robaxin] 750 mg PO Q8H PRN 10/22/17 03/11/18 Metoprolol Succinate [Toprol XL] 100 mg PO DAILY 10/22/17 03/14/18 Lisinopril [Zestril] 10 mg PO DAILY 12/12/17 03/11/18 Pantoprazole Sodium [Protonix] 20 mg PO DAILY 12/12/17 03/11/18 Previous Rx's Medication Instructions Recorded Diazepam [Valium] 5 mg PO Q8HR PRN 3 Days #9 tab 04/20/18 Allergies Allergy/AdvReac Type Severity Reaction Status Date / Time dexamethasone Allergy Unknown Verified 04/21/18 18:25 Review of Systems ROS Statement: Those systems with pertinent positive or pertinent negative responses have been documented in the HPI. ROS Other: All systems not noted in ROS Statement are negative. Past Medical History Past Medical History: GERD/Reflux, Hyperlipidemia, Hypertension, Osteoarthritis (OA), Thyroid Disorder Additional Past Medical History / Comment(s): Arthritis bilateral shoulders, bilateral knees and low back, chronic low back pain, nephrolithiasis, hypothyroid. History of Any Multi-Drug Resistant Organisms: None Reported Past Surgical History: Heart Catheterization, Hernia Repair, Orthopedic Surgery Additional Past Surgical History / Comment(s): CARDIAC CATH 1990s, R INGUINAL HERNIA REPAIR, BILATERAL KNEE ARTHROSCOPIES, CYSTO/URETERAL CATHETER/PNCL. Past Anesthesia/Blood Transfusion Reactions: No Reported Reaction Past Psychological History: No Psychological Hx Reported Smoking Status: Current every day smoker Past Alcohol Use History: Occasional Past Drug Use History: None Reported - Past Family History Father Family Medical History: Coronary Artery Disease (CAD), Myocardial Infarction ([place] ) Additional Family Medical History / Comment(s): FATHER HAD A [place] AT THE AGE OF 56YRS. HE IS STILL LIVING. Mother Additional Family Medical History / Comment(s): MOTHER FROM A STAPH INFECTION. General Exam - General Exam Comments Initial Comments: General: Awake and alert, well-developed; in no apparent distress. HEENT: Head atraumatic, normocephalic. Pupils are equal, round and reactive to light. Extraocular movements intact. Oropharynx moist without erythema or exudate. Neck: Supple. Normal ROM. Cardiovascular: Regular rate and rhythm. No murmurs, rubs or gallops. Chest symmetrical. Respiratory: Lungs clear to auscultation bilaterally. No wheezes, rales or rhonchi. Normal respiratory effort with no use of accessory muscles. Abdomen: Soft, non-tender, non-distended. No rigidity, rebound or guarding. Normal bowel sounds in all 4 quadrants. Musculoskeletal: Normal ROM, no tenderness bilateral upper and lower extremities. Patient is ambulating without assistance. Skin: [place], warm and dry without rashes or lesions. Neurological: Alert and oriented x3. CN II-XII grossly intact. Speech is fluent and answers are appropriate. No focal neuro deficits. Psychiatric: Normal mood and affect. No overt signs of depression or anxiety noted. Limitations: no limitations Rectal exam: Present: normal inspection, normal rectal tone, other (normal perineal sensation) Back exam: Present: normal inspection, tenderness (right SI joint tenderness), paraspinal tenderness. Absent: vertebral tenderness Course Vital Signs 04/21/18 18:21 Temperature 98.7 F Pulse Rate 84 Respiratory 18 Rate Blood Pressure 145/93 O2 Sat by Pulse 98 Oximetry Medical Decision Making - Medical Decision Making This is a 52-year-old male who presents to the emergency department with chief complaint of low back pain. Patient reports sustaining acute low back injury yesterday. He was seen here in the emergency department with a computed tomography scan of the low back was obtained. This revealed mild spondylotic changes in the lumbar spine with a small disc herniation at L5 to S1. Patient states that throughout the day today he has had 4 episodes of urinary incontinence. He also reports nausea and vomiting and is unable to keep down his pain medications. He denies any new injuries or trauma. On physical examination, there is tenderness to the right SI joint. He is neurovascularly intact. Rectal tone is normal and perineal sensation is normal. Pre-and post- residual void volumes were obtained with bladder scanner and patient is not significantly retaining urine. This case was discussed in detail with attending physician, Dr. Clayton. Recommend discharge home with follow-up to primary care provider for further evaluation with an MRI. Patient's vital signs have been stable and he is no acute distress. He is ambulating normally. He will be discharged home at this time. He is in agreement and voices understanding. All questions were answered. Patient was given Toradol and Norflex while in the emergency department. He will be provided with a starter pack for Zofran. Disposition Clinical Impression: Lumbar radiculopathy, Acute exacerbation of chronic low back pain Disposition: HOME SELF-CARE Condition: Good Instructions: Lumbar Radiculopathy (ED), Acute Low Back Pain (ED), Ondansetron (By mouth) Additional Instructions: Please take medications as prescribed. Please follow up with primary care provider within 1-2 days. Return to emergency department if symptoms should worsen or any concerns arise. Is patient prescribed a controlled substance at d/c from ED?: No Referrals: Elyssa Quinn DO [Primary Care Provider] - 1-2 days Time of Disposition: 20:04
[2018-04-21] MEDS ORDERED: KETOROLAC 30 MG/ML 1 ML VIAL IM STA (19:21)
[2018-04-21] MEDS ORDERED: ONDANSETRON 4 MG ODT STARTER PACK 2 TAB BTL PO STA (19:21)
[2018-04-21] MEDS ORDERED: ORPHENADRINE 30 MG/ML 2 ML VIAL IM STA (19:21)
[2018-04-21 20:20] VITALS: BP 161/94; PULSE 70; TEMP 99.1
== END 2018-04-21 20:19 | disposition home or self-care (01) ==
LOC: EC 18:17
DX: M54.16 Radiculopathy, lumbar region (principal); R32 Unspecified urinary incontinence; K21.9 Gastro-esophageal reflux disease without esophagitis; I10 Essential (primary) hypertension; M19.90 Unspecified osteoarthritis, unspecified site; E03.9 Hypothyroidism, unspecified; F17.200 Nicotine dependence, unspecified, uncomplicated; Z95.818 Presence of other cardiac implants and grafts; Z79.1 Long term (current) use of non-steroidal anti-inflammatories (NSAID); Z79.899 Other long term (current) drug therapy; Z88.8 Allergy status to other drugs, medicaments and biological substances; X50.0XXA Overexertion from strenuous movement or load, initial encounter
CPT/HCPCS: 51798; 99284; 96372 ×2; J2360; J1885; S0119

== ENCOUNTER → 2018-06-04 | Outpatient (CLI) | payer OTHER ==
--- NOTE | 2018-06-04 17:01 | CT ---
EXAMINATION TYPE: CT angio chest DATE OF EXAM: 06/04/2018 4:47 PM COMPARISON: 12/12/2017 HISTORY: f/u aortic aneurysm CT DLP: 1169.7 mGycm Automated exposure control for dose reduction was used. CONTRAST: CTA scan of the thorax is performed with IV Contrast, patient injected with 100 mL of Isovue 370, pul monary embolism protocol. . There are 3-D post processed images. Exam was performed without and with the IV contrast. FINDINGS: There is mild aneurysm of the ascending aorta that measures 3.9 cm and not significantly different th an last exam. There is normal contrast opacification of the pulmonary arteries. There are no filling defects. There is no mediastinal adenopathy. There are no hilar masses. There is no pericardial effus ion. There is no evidence of dissection. The lungs are clear of infiltrate. There is some spurring in the thoracic spine. There are 2 small rounded hypodense areas in the right lobe of the liver that ar e unchanged and consistent with hepatic cysts. IMPRESSION: STABLE MINIMAL ANEURYSM OF THE ASCENDING AORTA. NO EVIDENCE OF PULMONARY EMBOLISM.
== END | disposition home or self-care (01) ==
LOC: RADCTMAIN 15:43
PROVIDERS: ATTEND Family Medicine
DX: I71.2 Thoracic aortic aneurysm, without rupture (principal)
CPT/HCPCS: 71275; Q9967

== ENCOUNTER 2019-06-28 12:24 | Emergency (ER) | payer OTHER ==
[2019-06-28 12:50] VITALS: BP 148/91; PULSE 77; RESP 18; TEMP 98.8
[2019-06-28] MEDS ORDERED: LIDOCAINE 1% INJ 10MG/ML (20 ML MDV) SQ ONE (12:56)
--- NOTE | 2019-06-28 12:58 | ED ---
Skin/Abscess/FB HPI - General Chief complaint: Skin/Abscess/Foreign Body Stated complaint: Abcess back of leg Time Seen by Provider: 06/28/19 12:51 Source: patient, RN notes reviewed Mode of arrival: ambulatory Limitations: no limitations - History of Present Illness Initial comments: 55-year-old male presents emergency Department chief complaint of abscess to his left posterior thigh region. Patient states that this started approximate 2 weeks ago when she fell he was bit by a bug. He states that he's had increase in size and states today it is too painful to sit on. Patient denies any known fever states that he has not felt well at times but has been worse. Patient states that his been very minimal to no drainage. Patient denies being nadya betic. No history of skin infections. - Related Data Home Medications Medication Instructions Recorded Confirmed Cetirizine HCl [Zyrtec] 10 mg PO DAILY PRN 10/22/17 03/11/18 Hydrocodone/Acetaminophen [[place] 1 tab PO Q6H PRN 10/22/17 03/11/18 10-325] Ibuprofen [Motrin] 800 mg PO AC-BID 10/22/17 03/14/18 Levothyroxine Sodium [Synthroid] 137 mcg PO DAILY 10/22/17 03/11/18 Methocarbamol [Robaxin] 750 mg PO Q8H PRN 10/22/17 03/11/18 Metoprolol Succinate [Toprol XL] 100 mg PO DAILY 10/22/17 03/14/18 Lisinopril [Zestril] 10 mg PO DAILY 12/12/17 03/11/18 Pantoprazole Sodium [Protonix] 20 mg PO DAILY 12/12/17 03/11/18 Previous Rx's Medication Instructions Recorded Diazepam [Valium] 5 mg PO Q8HR PRN 3 Days #9 tab 04/20/18 Cephalexin [Keflex] 500 mg PO Q6HR #40 cap 06/28/19 HYDROcodone/APAP 10-325MG [[place] 1 tab PO Q6HR PRN 3 Days #12 tab 06/28/19 10-325] Ibuprofen [Motrin] 600 mg PO Q8HR PRN #30 tab 06/28/19 Sulfamethox-Tmp 800-160Mg [Bactrim 1 each PO Q12HR #20 tab 11/10/19 Ds] Allergies Allergy/AdvReac Type Severity Reaction Status Date / Time dexamethasone Allergy Unknown Verified 06/28/19 12:45 Review of Systems ROS Statement: Those systems with pertinent positive or pertinent negative responses have been documented in the HPI. ROS Other: All systems not noted in ROS Statement are negative. Past Medical History Past Medical History: GERD/Reflux, Hyperlipidemia, Hypertension, Osteoarthritis (OA), Thyroid Disorder Additional Past Medical History / Comment(s): Arthritis bilateral shoulders, bilateral knees and low back, chronic low back pain, nephrolithiasis, hypothyroid. History of Any Multi-Drug Resistant Organisms: None Reported Past Surgical History: Heart Catheterization, Hernia Repair, Orthopedic Surgery Additional Past Surgical History / Comment(s): CARDIAC CATH 1990s, R INGUINAL HERNIA REPAIR, BILATERAL KNEE ARTHROSCOPIES, CYSTO/URETERAL CATHETER/PNCL. Past Anesthesia/Blood Transfusion Reactions: No Reported Reaction Past Psychological History: No Psychological Hx Reported Smoking Status: Current every day smoker Past Alcohol Use History: Occasional Past Drug Use History: None Reported - Past Family History Father Family Medical History: Coronary Artery Disease (CAD), Myocardial Infarction ([place]) Additional Family Medical History / Comment(s): FATHER HAD A [place] AT THE AGE OF 56YRS. HE IS STILL LIVING. Mother Additional Family Medical History / Comment(s): MOTHER FROM A STAPH INFECTION. General Exam Limitations: no limitations General appearance: alert, in no apparent distress Head exam: Present: atraumatic, normocephalic, normal inspection Respiratory exam: Present: normal lung sounds bilaterally. Absent: respiratory distress, wheezes, rales, rhonchi, stridor Cardiovascular Exam: Present: regular rate, normal rhythm, normal heart sounds. Absent: systolic murmur, diastolic murmur, rubs, gallop, clicks Extremities exam: Present: other (Left posterior thigh there is an area of erythema approximately 4 cm in diameter, tender no fluctuant) Skin exam: Present: warm, dry, intact Course Vital Signs 06/28/19 12:45 Temperature 98.8 F Pulse Rate 77 Respiratory 18 Rate Blood Pressure 148/91 O2 Sat by Pulse 97 Oximetry Procedures - Incision & Drainage Consent Obtained: verbal consent Indication: Abscess Site: lower extremity (Left) Size (cm): 4 Anesthetic Used: lidocaine 1%, without epi Amount (mLs): 10 I&D Cleaning Method: Chloroprep Sterile Field Used?: No Scalpel Used: #11 I&D Drainage Obtained: Pus, Blood Culture Obtained?: No Patient Tolerated Procedure: well, no complications Medical Decision Making - Medical Decision Making Patient is a large abscess to his left posterior thigh. This was I&D emergency department is minimal drainage. Patient will be placed on Keflex, Bactrim. We discussed warm compresses and return parameters. Disposition Clinical Impression: Abscess of left leg Disposition: HOME SELF-CARE Condition: Stable Instructions (If sedation given, give patient instructions): Abscess Incision and Drainage (ED) Additional Instructions: Please return to the Emergency Department if symptoms worsen or any other concerns. Prescriptions: Sulfamethox-Tmp 800-160Mg [Bactrim Ds] 1 each PO Q12HR #20 tab Cephalexin [Keflex] 500 mg PO Q6HR #40 cap Ibuprofen [Motrin] 600 mg PO Q8HR PRN #30 tab PRN Reason: Pain HYDROcodone/APAP 10-325MG [[place] 10-325] 1 tab PO Q6HR PRN 3 Days #12 tab PRN Reason: pain Is patient prescribed a controlled substance at d/c from ED?: No Referrals: None,Stated [Primary Care Provider] - 1-2 days Time of Disposition: 13:13
== END 2019-06-28 13:19 | disposition home or self-care (01) ==
LOC: EC 12:24
DX: L02.416 Cutaneous abscess of left lower limb (principal); I10 Essential (primary) hypertension; K21.9 Gastro-esophageal reflux disease without esophagitis; E03.9 Hypothyroidism, unspecified; F17.200 Nicotine dependence, unspecified, uncomplicated; Z79.890 Hormone replacement therapy; Z79.899 Other long term (current) drug therapy; Z88.8 Allergy status to other drugs, medicaments and biological substances
CPT/HCPCS: 99283; 10060; J2001

== ENCOUNTER 2020-06-17 22:30 | Emergency (ER) | payer OTHER ==
[2020-06-17] MEDS ORDERED: MORPHINE SULFATE 4 MG/ML SYRINGE IV STA (22:57)
[2020-06-17] MEDS ORDERED: SODIUM CHLORIDE 0.9% 1,000 ML IV STA ×2 (22:57)
[2020-06-17 23:15] LABS: Basophils % (A) 1 %; Eosinophils # (A) 0.1 k/uL (0-0.7); Eosinophils % (A) 1 %; HGB 10.1 gm/dL (13.0-17.5); Lymphocytes # (A) 1.1 k/uL (1.0-4.8); Lymphocytes % (A) 17 %; MCH 33.6 pg (25.0-35.0); MCHC 33.5 g/dL (31.0-37.0); MCV 100.4 fL (80.0-100.0); Mean Platelet Volume 7.1; Monocytes # (A) 0.4 k/uL (0-1.0); Monocytes % (A) 6 %; Neutrophils # (A) 4.8 k/uL (1.3-7.7); Neutrophils % (A) 74 %; Platelet Count 133 k/uL (150-450); RBC 2.99 m/uL (4.30-5.90); RDW 13.1 % (11.5-15.5); WBC 6.6 k/uL (3.8-10.6)
--- NOTE | 2020-06-17 23:16 | ED ---
Chest Pain HPI - General Chief Complaint: Shortness of Breath Stated Complaint: Chest Pain Time Seen by Provider: 06/17/20 22:41 Source: patient, EMS, RN notes reviewed, old records reviewed Mode of arrival: EMS Limitations: physical limitation - History of Present Illness Initial Comments: is a 54-year-old male DF for evaluation patient is foreign half days out from left knee replacement. Patient was discharged from hospital on Saturday today is some significant worse pain in the left lower extremity increased swelling and chest pain chest tightness and cough. No fevers no history of heart disease. Patient is taking medication at home as directed with no significant improvement in his pain today. No shortness of breath MD Complaint: chest pain, other (chest tightness) -: hour(s) Onset: during rest, during exertion Pain Location: substernal Pain Radiation: none Severity: moderate Severity scale (1-10): 4 Quality: tightness, heaviness Consistency: constant Improves With: nothing Worsens With: nothing Context: recent illness Anginal Symptoms: dyspnea Other Symptoms: cough, palpitations Treatments Prior to Arrival: none - Related Data Home Medications Medication Instructions Recorded Confirmed Hydrocodone/Acetaminophen [[place] 1 tab PO Q4H PRN 10/22/17 06/17/20 10-325] Acetaminophen Tab [Tylenol Tab] 1,000 mg PO Q6HR PRN 06/17/20 06/17/20 Aspirin EC [Ecotrin Low Dose] 81 mg PO DAILY 06/17/20 06/17/20 Atorvastatin Calcium [Lipitor] 20 mg PO DAILY 06/17/20 06/17/20 Celebrex (Unknown Dose) 1 dose PO DAILY PRN 06/17/20 06/17/20 Levothyroxine Sodium 150 mcg PO DAILY 06/17/20 06/17/20 Metoprolol Succinate [Toprol XL] 200 mg PO DAILY 06/17/20 06/17/20 lisinopriL [Zestril] 20 mg PO DAILY 06/17/20 06/17/20 methocarbamoL [Robaxin] 500 mg PO Q8H PRN 06/17/20 06/17/20 Allergies Allergy/AdvReac Type Severity Reaction Status Date / Time dexamethasone Allergy Unknown Verified 06/17/20 22:56 Review of Systems ROS Statement: Those systems with pertinent positive or pertinent negative responses have been documented in the HPI. ROS Other: All systems not noted in ROS Statement are negative. EKG Findings - EKG Comments: EKG Findings:: EKG is sinus rhythm 64 OK 146 QRS 112 QTC 491 Past Medical History Past Medical History: GERD/Reflux, Hyperlipidemia, Hypertension, Osteoarthritis (OA), Thyroid Disorder Additional Past Medical History / Comment(s): Arthritis bilateral shoulders, bilateral knees and low back, chronic low back pain, nephrolithiasis, hypothyroid. History of Any Multi-Drug Resistant Organisms: None Reported Past Surgical History: Heart Catheterization, Hernia Repair, Joint Replacement, Orthopedic Surgery Additional Past Surgical History / Comment(s): CARDIAC CATH 1990s, R INGUINAL HERNIA REPAIR, BILATERAL KNEE ARTHROSCOPIES, CYSTO/URETERAL CATHETER/PNCL. bilateral total knee replacements Past Anesthesia/Blood Transfusion Reactions: No Reported Reaction Past Psychological History: No Psychological Hx Reported Smoking Status: Former smoker Past Alcohol Use History: Occasional Past Drug Use History: None Reported - Past Family History Father Family Medical History: Coronary Artery Disease (CAD), Myocardial Infarction (IA) Additional Family Medical History / Comment(s): FATHER HAD A IA AT THE AGE OF 56YRS. HE IS STILL LIVING. Mother Additional Family Medical History / Comment(s): MOTHER FROM A STAPH INFECTION. General Exam Limitations: physical limitation General appearance: alert, in no apparent distress Head exam: Present: atraumatic, normocephalic, normal inspection Eye exam: Present: normal appearance, PERRL, EOMI. Absent: scleral icterus, conjunctival injection, periorbital swelling ENT exam: Present: normal exam, mucous membranes moist Neck exam: Present: normal inspection. Absent: tenderness, meningismus, lymphadenopathy Respiratory exam: Present: normal lung sounds bilaterally. Absent: respiratory distress, wheezes, rales, rhonchi, stridor Cardiovascular Exam: Present: regular rate, normal rhythm, normal heart sounds. Absent: systolic murmur, diastolic murmur, rubs, gallop, clicks GI/Abdominal exam: Present: soft, normal bowel sounds. Absent: distended, t enderness, guarding, rebound, rigid Extremities exam: Present: normal inspection, full ROM, normal capillary refill. Absent: tenderness, pedal edema, joint swelling, calf tenderness Back exam: Present: normal inspection Neurological exam: Present: alert, oriented X3, CN II-XII intact Psychiatric exam: Present: normal affect, normal mood Skin exam: Present: warm, dry, intact, normal color. Absent: rash Course Vital Signs 06/17/20 06/17/20 06/17/20 22:34 22:47 22:58 Temperature 100.7 F H 99.4 F 99.3 F Pulse Rate 64 66 64 Respiratory 18 16 16 Rate Blood Pressure 189/91 172/89 174/92 O2 Sat by Pulse 98 97 98 Oximetry 06/17/20 06/18/20 06/18/20 23:11 00:45 01:38 Temperature 99.9 F H 100.2 F H Pulse Rate 70 67 66 Respiratory 18 18 Rate Blood Pressure 179/93 177/84 O2 Sat by Pulse 98 100 Oximetry 06/18/20 06/18/20 01:42 01:48 Temperature Pulse Rate 63 67 Respiratory 16 Rate Blood Pressure 161/85 O2 Sat by Pulse 100 Oximetry - Reevaluation(s) Reevaluation #1: 06/18/20 00:39 medical record is reviewed Reevaluation #2: 06/18/20 01:55 Multiple attempts have been made and are unsuccessful to reach Dr Sheldon Reevaluation #3: 06/18/20 01:56 spoke patient length he is refusing transfer to another hospital at this time, patient given IV antibiotics here in the ER blood pressure remains normal temperatures low-grade patient will follow-up with orthopedic doctor Chest Pain MDM - MDM 54 male DF for evaluation of pain, left knee pain chest pain CT negative for PE WILL FLOOR EXTREMITY NEGATIVE FOR DVT PATIENT REFUSING TRANSFER AT THIS TIME, WE WILL DISCHARGE PATIENT HOME DOES HAVE FEVER AND WILL NEED TO BE RULED OUT FOR JOINT INFECTION SECONDARY TO POSTOPERATIVE Disposition Clinical Impression: Fever, Postoperative fever, Postoperative pain, Chest pain, Left knee pain Disposition: HOME SELF-CARE Condition: Undetermined Instructions (If sedation given, give patient instructions): Fever in Adults (ED), Knee Pain (ED) Is patient prescribed a controlled substance at d/c from ED?: No Referrals: Calos Sheldon MD [REFERRING] - 1-2 days
[2020-06-17 23:27] LABS: ALT 14 U/L (4-49); AST 28 U/L (17-59); African American GFR (CKD) >90 (>60 ml/min/1.73 sqM); Albumin 3.7 g/dL (3.5-5.0); Alkaline Phosphatase 57 U/L (38-126); Anion Gap 4 mmol/L; Blood Urea Nitrogen 9 mg/dL (9-20); C Reactive Protein 48.5 mg/L (<10.0); Calcium 8.9 mg/dL (8.4-10.2); Carbon Dioxide 27 mmol/L (22-30); Chloride 101 mmol/L (98-107); Creatine Kinase 134 U/L (55-170); Glucose 110 mg/dL (74-99); Magnesium 1.9 mg/dL (1.6-2.3); Non-African American GFR(CKD) >90 (>60 ml/min/1.73 sqM); Phosphorus 3.4 mg/dL (2.5-4.5); Potassium 4.2 mmol/L (3.5-5.1); Sodium 132 mmol/L (137-145); Total Bilirubin 0.8 mg/dL (0.2-1.3); Total Protein 6.4 g/dL (6.3-8.2)
[2020-06-17 23:37] LABS: INR 0.9 (<1.2); Prothrombin Time 9.4 sec (9.0-12.0)
[2020-06-17 23:45] LABS: D-Dimer 1.78 mg/L FEU (<0.60)
--- NOTE | 2020-06-18 00:05 | US ---
EXAMINATION TYPE: US venous doppler duplex LE LT DATE OF EXAM: 06/17/2020 11:10 PM COMPARISON: NONE CLINICAL HISTORY: dvt. left total knee replacement 06/14/20. Pain, edema, redness left leg SIDE PERFORMED: left TECHNIQUE: The lower extremity deep venous system is examined utilizing real time linear array sonog humberto with graded compression, doppler sonography and color-flow sonography. VESSELS IMAGED: External Iliac Vein (EIV) Common Femoral Vein Deep Femoral Vein Greater Saphenous Vein * Femoral Vein Popliteal Vein Small Saphenous Vein * Proximal Calf Veins (* superficial vessels) Left Leg: no evidence of DVT as visualized. limitations due to large amount of soft tissue edema IMPRESSION: No sign of deep vein thrombosis in the left leg.
[2020-06-18 00:47] VITALS: TEMP 100.2
--- NOTE | 2020-06-18 00:53 | CT ---
EXAM: CT Angiography Chest With Intravenous Contrast CLINICAL HISTORY: Chest pain, evaluate for pulmonary embolism TECHNIQUE: Axial computed tomographic angiography images of the chest with intravenous contrast. CTDI is 26.37 mGy and DLP is 751.7 mGy-cm. This CT exam was performed using one or more of the following dose reduction techniques: automated exposure control, adjustment of the mA and/or kV according to patient size, and/or use of iterative reconstruction technique. MIP reconstructed images were created and reviewed. COMPARISON: 06/04/2018 FINDINGS: Pulmonary arteries: No pulmonary embolism. Aorta: No acute findings. No thoracic aortic aneurysm. Lungs: Unremarkable. No mass. No consolidation. Pleural space: Unremarkable. No significant effusion. No pneumothorax. Heart: Unremarkable. No cardiomegaly. No significant pericardial effusion. No evidence of RV dysfunction. Bones/joints: No acute fracture. No dislocation. Soft tissues: Left retroperitoneal soft tissue mass adjacent to the left cherise of the diaphragm is unchanged from 2018 measuring 4.4 x 4.1 x 4. 5 cm (series 401 image 165). Two left adrenal nodules measuring 1.7 cm and 1.2 cm, unchanged in size from 06/04/2018. Multiple cysts in the liver, unchanged in distrubution from prior study. Lymph nodes: Unremarkable. No enlarged lymph nodes. IMPRESSION: 1. No acute pulmonary embolism. 2. 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 MRI may be obtained for more sensitive evaluation if clinically indicated. 3. Unchanged left adrenal nodules measuring up to 1.7 cm.
[2020-06-18] MEDS ORDERED: IPRATROPIUM-ALBUTEROL 3 ML NEB INHALATION STA (00:58)
[2020-06-18] MEDS ORDERED: VANCOMYCIN IV PER PHARMACY 1 EACH MISC MISCELLANE PRN (01:02)
[2020-06-18] MEDS ORDERED: ACETAMINOPHEN TAB 500 MG TAB PO STA (01:02)
[2020-06-18] MEDS ORDERED: AMPICILLIN-SULBACTAM 3 GM in SODIUM CHLORIDE 0.9% 100 ML IVPB STA (01:02)
[2020-06-18 01:04] LABS: Appearance,Urine Clear (Clear); Bacteria,Urine Rare /hpf; Bilirubin,Urine Negative (Negative); Blood,Urine Moderate (Negative); Color,Urine Light Yellow; Glucose,Urine (UA) Negative (Negative); Ketones,Urine Negative (Negative); Leukocyte Esterase,Urine Negative (Negative); Mucus,Urine Rare /hpf; Nitrite,Urine Negative (Negative); Protein,Urine Negative (Negative); RBC,Urine 9 /hpf (0-5); Specific Gravity,Urine 1.013 (1.001-1.035); Urobilinogen,Urine <2.0 mg/dL (<2.0); WBC,Urine <1 /hpf (0-5)
[2020-06-18] MEDS ORDERED: hydrALAZINE HCL 20 MG/ML 1 ML VIAL IVP STA (01:27)
[2020-06-18 01:43] VITALS: RESP 16
[2020-06-18 01:48] VITALS: PULSE 67
[2020-06-18] MEDS ORDERED: SULFAMETH-TMP DS STARTER PACK 2 TAB BTL PO STA (01:54)
[2020-06-18] MEDS ORDERED: SULFAMETHOX-TMP 800-160MG 1 EACH TAB PO STA (01:54)
[2020-06-18] MEDS ORDERED: AMOXIC-POT CLAV 875-125MG 1 EACH TAB PO STA (01:54)
[2020-06-18] MEDS ORDERED: AMOXIC-POT CLAV 875MG STARTER PACK 2 TAB BTL PO STA (01:54)
[2020-06-18] MEDS ORDERED: VANCOMYCIN 2,250 MG in SODIUM CHLORIDE 0.9% 500 ML 500 ML IVPB ONE (02:00)
[2020-06-18 03:46] VITALS: BP 182/94
== END 2020-06-18 03:33 | disposition home or self-care (01) ==
LOC: EC 22:30
DX: R07.9 Chest pain, unspecified (principal); M25.562 Pain in left knee; R50.82 Postprocedural fever; G89.18 Other acute postprocedural pain; Z87.891 Personal history of nicotine dependence; E78.5 Hyperlipidemia, unspecified; I10 Essential (primary) hypertension; M19.90 Unspecified osteoarthritis, unspecified site; E07.9 Disorder of thyroid, unspecified; Z79.82 Long term (current) use of aspirin; Z79.899 Other long term (current) drug therapy; Z79.890 Hormone replacement therapy; Z95.5 Presence of coronary angioplasty implant and graft; Z96.653 Presence of artificial knee joint, bilateral; Z88.8 Allergy status to other drugs, medicaments and biological substances
CPT/HCPCS: 36415; 94640; 93005; 85379; 83880; 80053; 82550; 83605; 83735; 84100; 84484; 85025; 85610; 85730; 86140; 81001; 87040; 93971; 71275; 99285; 96365; 96367; 96375 ×2; J3370; J2270; J0360; J0295; Q9967

== ENCOUNTER 2022-01-21 12:13 | Emergency (ER) | payer OTHER ==
[2022-01-21 12:18] VITALS: BP 178/91; PULSE 70; RESP 16; TEMP 97.8
[2022-01-21] MEDS ORDERED: HYDROmorphone 1 MG/ML 1 ML SYRINGE IM STA (12:25)
[2022-01-21] MEDS ORDERED: KETOROLAC 15 MG/ML 1 ML VIAL IM STA (12:25)
--- NOTE | 2022-01-21 12:28 | ED ---
General Adult HPI - General Chief complaint: Back Pain/Injury Stated complaint: back/leg pain Time Seen by Provider: 01/21/22 12:21 Source: patient, RN notes reviewed Mode of arrival: ambulatory Limitations: no limitations - History of Present Illness Initial comments: Patient is a pleasant 56-year-old male presenting to the emergency department with lower back pain. Patient has chronic symptoms for years. Patient is scheduled to have surgery in less than [address] Kraig Alvarez. Patient states symptoms have been a little bit worse the past couple of days. No weakness. No loss of sensation. No incontinence or retention of bowel or bladder products. Discomfort does radiate to the right leg. - Related Data Home Medications Medication Instructions Recorded Confirmed Hydrocodone/Acetaminophen [[place] 1 tab PO Q4H PRN 10/22/17 06/17/20 10-325] Acetaminophen Tab [Tylenol Tab] 1,000 mg PO Q6HR PRN 06/17/20 06/17/20 Aspirin EC [Ecotrin Low Dose] 81 mg PO DAILY 06/17/20 06/17/20 Atorvastatin Calcium [Lipitor] 20 mg PO DAILY 06/17/20 06/17/20 Celebrex (Unknown Dose) 1 dose PO DAILY PRN 06/17/20 06/17/20 Levothyroxine Sodium 150 mcg PO DAILY 06/17/20 06/17/20 Metoprolol Succinate [Toprol XL] 200 mg PO DAILY 06/17/20 06/17/20 lisinopriL [Zestril] 20 mg PO DAILY 06/17/20 06/17/20 methocarbamoL [Robaxin] 500 mg PO Q8H PRN 06/17/20 06/17/20 Allergies Allergy/AdvReac Type Severity Reaction Status Date / Time dexamethasone Allergy Unknown Verified 01/21/22 12:18 Review of Systems ROS Statement: Those systems with pertinent positive or pertinent negative responses have been documented in the HPI. ROS Other: All systems not noted in ROS Statement are negative. Constitutional: Denies: fever Eyes: Denies: eye pain ENT: Denies: ear pain Respiratory: Denies: cough Cardiovascular: Denies: chest pain Endocrine: Denies: fatigue Gastrointestinal: Denies: abdominal pain, nausea, vomiting Genitourinary: Denies: dysuria Musculoskeletal: Reports: as per HPI, back pain Skin: Denies: rash Neurological: Denies: weakness Past Medical History Past Medical History: GERD/Reflux, Hyperlipidemia, Hypertension, Osteoarthritis (OA), Thyroid Disorder Additional Past Medical History / Comment(s): Arthritis bilateral shoulders, bilateral knees and low back, chronic low back pain, nephrolithiasis, hypothyroid. History of Any Multi-Drug Resistant Organisms: None Reported Past Surgical History: Heart Catheterization, Hernia Repair, Joint Replacement, Orthopedic Surgery Additional Past Surgical History / Comment(s): CARDIAC CATH 1990s, R INGUINAL HERNIA REPAIR, BILATERAL KNEE ARTHROSCOPIES, CYSTO/URETERAL CATHETER/PNCL. bilateral total knee replacements Past Anesthesia/Blood Transfusion Reactions: No Reported Reaction Past Psychological History: No Psychological Hx Reported Smoking Status: Former smoker Past Alcohol Use History: Occasional Past Drug Use History: None Reported - Past Family History Father Family Medical History: Coronary Artery Disease (CAD), Myocardial Infarction (NH) Additional Family Medical History / Comment(s): FATHER HAD A NH AT THE AGE OF 56YRS. HE IS STILL LIVING. Mother Additional Family Medical History / Comment(s): MOTHER FROM A STAPH INFECTION. General Exam Limitations: no limitations General appearance: alert, in no apparent distress Head exam: Present: normocephalic Eye exam: Present: normal appearance Respiratory exam: Present: normal lung sounds bilaterally Cardiovascular Exam: Present: regular rate, normal rhythm Expanded Peripheral pulses: 2+: Posterior Tibialis (R), Posterior Tibialis (L) GI/Abdominal exam: Present: soft. Absent: tenderness, pulsatile mass Extremities exam: Present: normal inspection Back exam: Present: vertebral tenderness (Right lower paraspinal) Neurological exam: Present: alert. Absent: motor sensory deficit Expanded Sensory exam: Lower Extremity Light Touch: Normal Motor strength exam: RLE: 5, LLE: 5 Psychiatric exam: Present: normal affect, normal mood Skin exam: Present: normal color Course Vital Signs 01/21/22 12:14 Temperature 97.8 F Pulse Rate 70 Respiratory 16 Rate Blood Pressure 178/91 O2 Sat by Pulse 99 Oximetry Medical Decision Making - Medical Decision Making Patient is receptive to medication administration and discharge. Disposition Clinical Impression: Lower back pain Disposition: HOME SELF-CARE Condition: Stable Instructions (If sedation given, give patient instructions): Acute Low Back Pain (ED) Additional Instructions: Please do follow-up with your primary care physician and back surgeon in the beginning of the week. Return for weakness, loss of control of bowel or bladder, loss of sensation and worsening or changing symptoms or other concerns. Is patient prescribed a controlled substance at d/c from ED?: No Referrals: Curry Camacho MD [STAFF PHYSICIAN] - 1-2 days Time of Disposition: 12:28
== END 2022-01-21 12:58 | disposition home or self-care (01) ==
LOC: EC 12:13
DX: M54.50 Low back pain, unspecified (principal); I10 Essential (primary) hypertension; E78.5 Hyperlipidemia, unspecified; K21.9 Gastro-esophageal reflux disease without esophagitis; E03.9 Hypothyroidism, unspecified; M19.90 Unspecified osteoarthritis, unspecified site; Z87.891 Personal history of nicotine dependence; Z79.82 Long term (current) use of aspirin; Z79.890 Hormone replacement therapy; Z79.899 Other long term (current) drug therapy
CPT/HCPCS: 99283; 96372 ×2; J1170; J1885

== ENCOUNTER 2024-02-03 11:09 | Emergency (ER) | payer SELFPAY ==
--- NOTE | 2024-02-03 11:42 | ED ---
Abdominal Pain HPI - General Chief Complaint: Abdominal Pain Stated Complaint: Abd Pain-Post Kidney Surgery Time Seen by Provider: 02/03/24 11:22 Source: patient, RN notes reviewed Mode of arrival: EMS Limitations: no limitations - History of Present Illness Initial Comments: This is a 58-year-old male with medical history of a right partial nephrectomy on 01/26, reports emergency department chief complaint of hematuria. Patient states that at 0 900 this morning he went to use the bathroom where he urinated blood. Patient states he had multiple other episodes of urination this morning which resulted in angel blood output. Patient is experiencing right flank pain with radiation into the mid right abdomen. Patient follows with Dr. Goel [facility], states that his next appointment is scheduled on 02/07. Patient was discharged from [facility] 01/28. Currently he is denying chest pain, chest pressure, palpitations, diarrhea, constipation, fevers. Patient endorses episode of dizziness this morning. Patient is on eliquis for an abdominal aneurysmm denies current antibiotic or steroid use. - Related Data Home Medications Medication Instructions Recorded Confirmed Hydrocodone/Acetaminophen [Emblem 1 tab PO Q4H PRN 10/22/17 02/03/24 10-325] Acetaminophen Tab [Tylenol Tab] 500 mg PO Q6HR PRN 06/17/20 02/03/24 Atorvastatin Calcium [Lipitor] 20 mg PO HS 06/17/20 02/03/24 Levothyroxine Sodium 150 mcg PO DAILY 06/17/20 02/03/24 methocarbamoL [Robaxin] 500 mg PO BID PRN 06/17/20 02/03/24 Amiodarone [Cordarone] 200 mg PO DAILY 02/03/24 02/03/24 Apixaban [Eliquis] 5 mg PO BID 02/03/24 02/03/24 Cholecalciferol [Vitamin D3 (25 50 mcg PO DAILY 02/03/24 02/03/24 Mcg = 1000 Iu)] Ketorolac [Toradol] 10 mg PO Q6HR PRN 02/03/24 02/03/24 Multivitamins, Thera [Multivitamin 1 tab PO DAILY 02/03/24 02/03/24 (formulary)] NIFEdipine XL [Procardia Xl] 30 mg PO DAILY 02/03/24 02/03/24 Naloxone HCl [Narcan] 4 mg NASAL DIRECTED PRN 02/03/24 02/03/24 Nitroglycerin Sl Tabs [Nitrostat] 0.4 mg SUBLINGUAL Q5M PRN 02/03/24 02/03/24 carvediloL [Coreg] 6.25 mg PO BID 02/03/24 02/03/24 Allergies Allergy/AdvReac Type Severity Reaction Status Date / Time dexamethasone Allergy Unknown Verified 02/03/24 12:16 Review of Systems ROS Statement: Those systems with pertinent positive or pertinent negative responses have been documented in the HPI. ROS Other: All systems not noted in ROS Statement are negative. Past Medical History Past Medical History: Cancer, GERD/Reflux, Hyperlipidemia, Hypertension, Osteoarthritis (OA), Thyroid Disorder Additional Past Medical History / Comment(s): Arthritis bilateral shoulders, bilateral knees and low back, chronic low back pain, nephrolithiasis, hypothyroi d, kidney cancer. History of Any Multi-Drug Resistant Organisms: None Reported Past Surgical History: Heart Catheterization, Hernia Repair, Joint Replacement, Orthopedic Surgery Additional Past Surgical History / Comment(s): CARDIAC CATH 1990s, R INGUINAL HERNIA REPAIR, BILATERAL KNEE ARTHROSCOPIES, CYSTO/URETERAL CATHETER/PNCL. bilateral total knee replacements Past Anesthesia/Blood Transfusion Reactions: No Reported Reaction Past Psychological History: No Psychological Hx Reported Smoking Status: Former smoker Past Alcohol Use History: Occasional Past Drug Use History: None Reported - Past Family History Father Family Medical History: Coronary Artery Disease (CAD), Myocardial Infarction ([place]) Additional Family Medical History / Comment(s): FATHER HAD A [place] AT THE AGE OF 56YRS. HE IS STILL LIVING. Mother Additional Family Medical History / Comment(s): MOTHER FROM A STAPH INFECTION. General Exam Limitations: no limitations General appearance: alert, in no apparent distress Head exam: Present: atraumatic, normocephalic, normal inspection Eye exam: Present: normal appearance, PERRL, EOMI. Absent: scleral icterus, conjunctival injection, periorbital swelling ENT exam: Present: normal exam, mucous membranes moist Neck exam: Present: normal inspection. Absent: tenderness, meningismus, lymphadenopathy Respiratory exam: Present: normal lung sounds bilaterally. Absent: respiratory distress, wheezes, rales, rhonchi, stridor Cardiovascular Exam: Present: regular rate, normal rhythm, normal heart sounds. Absent: systolic murmur, diastolic murmur, rubs, gallop, clicks GI/Abdominal exam: Present: soft, distended, tenderness (Right mid abdomen). Absent: guarding, rebound, rigid Extremities exam: Present: normal inspection, full ROM, normal capillary refill. Absent: tenderness, pedal edema, joint swelling, calf tenderness Back exam: Present: normal inspection, tenderness, CVA tenderness (R). Absent: full ROM Neurological exam: Present: alert, oriented X3, CN II-XII intact Psychiatric exam: Present: normal affect, normal mood Skin exam: Present: warm, dry, intact, normal color. Absent: rash Course Vital Signs 02/03/24 02/03/24 02/03/24 11:15 12:25 14:10 Temperature 98.1 F Pulse Rate 64 64 69 Respiratory 16 17 18 Rate Blood Pressure 130/81 123/77 125/81 O2 Sat by Pulse 97 99 96 Oximetry Medical Decision Making - Medical Decision Making Was pt. sent in by a medical professional or institution (, PA, CORRECTIONAL AGENCY DIRECTOR, urgent care, hospital, or snf...) When possible be specific @ -No Did you speak to anyone other than the patient for history (EMS, parent, family, police, friend...)? What history was obtained from this source @ -No Did you review nursing and triage notes (agree or disagree)? Why? @ -I reviewed and agree with nursing and triage notes Were old charts reviewed (outside hosp., previous admission, EMS record, old EKG, old radiological studies, urgent care reports/EKG's, snf records)? Report findings @ -No old charts were reviewed Differential Diagnosis (chest pain, altered mental status, abdominal pain women, abdominal pain men, vaginal bleeding, weakness, fever, dyspnea, syncope, headache, dizziness, GI bleed, back pain, seizure, CVA, palpatations, mental health, musculoskeletal)? @ -Differential Abdominal Pain Men: Appendicitis, cholecystitis, diverticulosis, ischemic bowel, pancreatitis, hepatitis, UTI, gastroenteritis, AAA, incarcerated hernia, bowel obstruction, constipation, inflammatory bowel, hepatitis, peptic ulcer disease, splenic infarction, perforated viscus, testicular torsion, this is not meant to be an a ll-inclusive list EKG interpreted by me (3pts min.). @ -None X-rays interpreted by me (1pt min.). @ -None done CT interpreted by me (1pt min.). @ -CT of the abdomen and pelvis without contrast reveals partial right-sided nephrectomy changes, obstructing calculus at the right UPJ measuring 1.5 cm with mild to moderate right-sided hydronephrosis and hemorrhagic contents within the urinary bladder lumen. There is also a staghorn calculus of the left kidney measuring 2.4 cm. U/S interpreted by me (1pt. min.). @ -None done What testing was considered but not performed or refused? (CT, X-rays, U/S, labs)? Why? @ -None What meds were considered but not given or refused? Why? @ -None Did you discuss the management of the patient with other professionals (professionals i.e. , PA, CORRECTIONAL AGENCY DIRECTOR, lab, RT, psych nurse, social service manager, embedded systems software developer, teacher, aoc plans intelligence officer, case technician)? Give summary @ -None impression of CT abdomen pelvis results urology was consulted. I spoke with Dr. Gamble, where it was recommended that patient be transferred to [facility] for further evaluation and to follow-up with patient's specialist, Dr. Goel. With [facility] transfer line, May, who connected me with ER attending Dr. Lowry at the [facility] in regard to the patient's history of a right partial nephrectomy on 01/26, patient is excepted for emergency to emergency room transfer. Was smoking cessation discussed for >3mins.? @ -No Was critical care preformed (if so, how long)? @ -No Were there social determinants of health that impacted care today? How? (Homelessness, low income, unemployed, alcoholism, drug addiction, transportation, low edu. Level, literacy, decrease access to med. care, long-term, rehab)? @ -No Was there de-escalation of care discussed even if they declined (Discuss DNR or withdrawal of care, Hospice)? DNR status @ -No What co-morbidities impacted this encounter? (DM, HTN, Smoking, COPD, CAD, Cancer, CVA, ARF, Chemo, Hep., AIDS, mental health diagnosis, sleep apnea, morbid obesity)? @ -None Was patient admitted / discharged? Hospital course, mention meds given and route, prescriptions, significant lab abnormalities, going to OR and other pertinent info. @ -transferred. 58-year-old male with hematuria. On examination patient is noted to have right-sided abdominal tenderness, equal bowel sounds heard throughout. Patient will be symptomatically treated with fluids and pain medication while pending labs and CT of the abdomen pelvis will be ordered for further evaluation. Patient did agree with this plan. Reevaluation, patient is expressing further pain medication. CBC reveals hemoglobin of 9.7, hematocrit of 31.4. Coagulation profile within normal limits, hyponatremia of 132. Urinalysis remarkable for a red color, turbid appearance, greater than 182 red blood cells and white blood cells. At this time a consult was placed to Dr. Gamble, Urology, for recommendation with CT findings of a 1.5 cm obstructing right calculus at the UPJ. Recommended by urology for patient to be transferred to [facility] to follow-up with patient's urologist, Dr. Goel, for further evaluation. Spoke with Dr. Lowry, [facility] in regard to emergency to emergency department transfer, patient is excepted. Patient was provided with additional pain medication before time of transfer. Case discussed with my attending Dr. Bowie Undiagnosed new problem with uncertain prognosis? @ -No Drug Therapy requiring intensive monitoring for toxicity (Heparin, Nitro, Insulin, Cardizem)? @ -No Were any procedures done? @ -No Diagnosis/symptom? @ -nephrolithiasis, obstructing calculus at UPJ Acute, or Chronic, or Acute on Chronic? @ -acute Uncomplicated (without systemic symptoms) or Complicated (systemic symptoms)? @ -Complicated Side effects of treatment? @ -No Exacerbation, Progression, or Severe Exacerbation? @ -No Poses a threat to life or bodily function? How? (Chest pain, [place], [place], pneumonia, PE, COPD, DKA, ARF, appy, cholecystitis, CVA, Diverticulitis, Homicidal, Suicidal, threat to staff... and all critical care pts) @ -possibly, untreated hemorrhagic cystitis can lead to multiorgan system dysfunction. - Lab Data Result diagrams: 02/03/24 11:50 02/03/24 11:50 Lab Results 02/03/24 02/03/24 02/03/24 Range/Units 11:50 11:50 11:50 WBC 6.5 (3.8-10.6) k/uL RBC 3.51 L (4.30-5.90) m/uL Hgb 9.7 L (13.0-17.5) gm/dL Hct 31.4 L (39.0-53.0) % MCV 89.5 (80.0-100.0) fL MCH 27.6 (25.0-35.0) pg MCHC 30.8 L (31.0-37.0) g/dL RDW 15.5 (11.5-15.5) % Plt Count 255 (150-450) k/uL MPV 7.2 Neutrophils % 57 % Lymphocytes % 19 % Monocytes % 11 % Eosinophils % 10 % Basophils % 1 % Neutrophils # 3.7 (1.3-7.7) k/uL Lymphocytes # 1.3 (1.0-4.8) k/uL Monocytes # 0.7 (0-1.0) k/uL Eosinophils # 0.6 (0-0.7) k/uL Basophils # 0.1 (0-0.2) k/uL Hypochromasia Slight PT 10.9 (10.0-12.5) sec INR 1.0 (<1.2) APTT 24.7 (22.0-30.0) sec Sodium 132 L (137-145) mmol/L Potassium 4.3 (3.5-5.1) mmol/L Chloride 102 (98-107) mmol/L Carbon Dioxide 24 (22-30) mmol/L Anion Gap 6 mmol/L BUN 11 (9-20) mg/dL Creatinine 1.49 H (0.66-1.25) mg/dL Est GFR (CKD-EPI)AfAm 59 (>60 ml/min/1.73 sqM) Est GFR (CKD-EPI)NonAf 51 (>60 ml/min/1.73 sqM) Glucose 112 H (74-99) mg/dL Plasma Lactic Acid Guillermo (0.7-2.0) mmol/L Calcium 8.5 (8.4-10.2) mg/dL Total Bilirubin 0.5 (0.2-1.3) mg/dL AST 26 (17-59) U/L ALT 14 (4-49) U/L Alkaline Phosphatase 58 (38-126) U/L Total Protein 6.1 L (6.3-8.2) g/dL Albumin 3.5 (3.5-5.0) g/dL Amylase 45 (30-110) U/L Lipase 58 (23-300) U/L Urine Color Urine Appearance (Clear) Urine RBC (0-5) /hpf Urine WBC (0-5) /hpf Urine WBC Clumps (None) /hpf 02/03/24 02/03/24 Range/Units 11:50 13:01 WBC (3.8-10.6) k/uL RBC (4.30-5.90) m/uL Hgb (13.0-17.5) gm/dL Hct (39.0-53.0) % MCV (80.0-100.0) fL MCH (25.0-35.0) pg MCHC (31.0-37.0) g/dL RDW (11.5-15.5) % Plt Count (150-450) k/uL MPV Neutrophils % % Lymphocytes % % Monocytes % % Eosinophils % % Basophils % % Neutrophils # (1.3-7.7) k/uL Lymphocytes # (1.0-4.8) k/uL Monocytes # (0-1.0) k/uL Eosinophils # (0-0.7) k/uL Basophils # (0-0.2) k/uL Hypochromasia PT (10.0-12.5) sec INR (<1.2) APTT (22.0-30.0) sec Sodium (137-145) mmol/L Potassium (3.5-5.1) mmol/L Chloride (98-107) mmol/L Carbon Dioxide (22-30) mmol/L Anion Gap mmol/L BUN (9-20) mg/dL Creatinine (0.66-1.25) mg/dL Est GFR (CKD-EPI)AfAm (>60 ml/min/1.73 sqM) Est GFR (CKD-EPI)NonAf (>60 ml/min/1.73 sqM) Glucose (74-99) mg/dL Plasma Lactic Acid Guillermo 1.8 (0.7-2.0) mmol/L Calcium (8.4-10.2) mg/dL Total Bilirubin (0.2-1.3) mg/dL AST (17-59) U/L ALT (4-49) U/L Alkaline Phosphatase (38-126) U/L Total Protein (6.3-8.2) g/dL Albumin (3.5-5.0) g/dL Amylase (30-110) U/L Lipase (23-300) U/L Urine Color Red Urine Appearance Turbid (Clear) Urine RBC >182 H (0-5) /hpf Urine WBC >182 H (0-5) /hpf Urine WBC Clumps Many H (None) /hpf Disposition Clinical Impression: Nephrolithiasis Disposition: OTHER INSTITUTION NOT DEFINED Condition: Good Is patient prescribed a controlled substance at d/c from ED?: No Referrals: Nonstaff,Physician [Primary Care Provider] - 1-2 days - Out of Hospital Transfer - Req. Specs Out of Hospital Transfer - Requested Specifics: Other Non-Acute (Jeff Laureano)
[2024-02-03] MEDS: SODIUM CHLORIDE 0.9% 500 ML 500 ML IV STA (12:00)
[2024-02-03 12:10] LABS: Basophils # (A) 0.1 k/uL (0-0.2); Basophils % (A) 1 %; Eosinophils # (A) 0.6 k/uL (0-0.7); Eosinophils % (A) 10 %; HCT 31.4 % (39.0-53.0); HGB 9.7 gm/dL (13.0-17.5); Hypochromasia Slight; Lymphocytes # (A) 1.3 k/uL (1.0-4.8); Lymphocytes % (A) 19 %; MCH 27.6 pg (25.0-35.0); MCHC 30.8 g/dL (31.0-37.0); MCV 89.5 fL (80.0-100.0); Mean Platelet Volume 7.2; Monocytes # (A) 0.7 k/uL (0-1.0); Monocytes % (A) 11 %; Neutrophils # (A) 3.7 k/uL (1.3-7.7); Neutrophils % (A) 57 %; Platelet Count 255 k/uL (150-450); RBC 3.51 m/uL (4.30-5.90); RDW 15.5 % (11.5-15.5); WBC 6.5 k/uL (3.8-10.6)
[2024-02-03 12:25] LABS: Anion Gap 6 mmol/L; Blood Urea Nitrogen 11 mg/dL (9-20); Carbon Dioxide 24 mmol/L (22-30); Chloride 102 mmol/L (98-107); Glucose 112 mg/dL (74-99); Potassium 4.3 mmol/L (3.5-5.1); Sodium 132 mmol/L (137-145)
[2024-02-03 12:26] LABS: ALT 14 U/L (4-49); AST 26 U/L (17-59); African American GFR (CKD) 59 (>60 ml/min/1.73 sqM); Albumin 3.5 g/dL (3.5-5.0); Alkaline Phosphatase 58 U/L (38-126); Amylase 45 U/L (30-110); Calcium 8.5 mg/dL (8.4-10.2); Lipase 58 U/L (23-300); Non-African American GFR(CKD) 51 (>60 ml/min/1.73 sqM); Partial Thromboplastin Time 24.7 sec (22.0-30.0); Prothrombin Time 10.9 sec (10.0-12.5); Total Bilirubin 0.5 mg/dL (0.2-1.3); Total Protein 6.1 g/dL (6.3-8.2)
[2024-02-03] MEDS: HYDROmorphone 0.5 MG/0.5 ML SYRINGE IVP STA ×2 (12:26→13:24)
--- NOTE | 2024-02-03 13:15 | CT ---
EXAMINATION TYPE: CT abdomen pelvis wo con DATE OF EXAM: 02/03/2024 COMPARISON: None HISTORY: Right flank pain, 01/[address] DLP: 965 mGycm Examination of the solid and hollow viscera is limited given the lack of contrast. FINDINGS: LUNG BASES: No evidence for nodule. No evidence for infiltrate. Small right-sided pleural effusion wi th compressive atelectasis. LIVER/GB: The gallbladder is unremarkable. No space-occupying hepatic lesion. PANCREAS: No pancreatic mass identified. No inflammatory process seen. SPLEEN: No evidence for splenomegaly. No intrasplenic lesions seen. ADRENALS: No adrenal nodules identified. No evidence for thickening. KIDNEYS: There are partial right-sided nephrectomy changes seen with sutures seen as well as a small amount of free air which still does persist. There is an obstructing calculus at the right UPJ measur ing 1.5 cm with [id number] right-sided hydronephrosis. There is mild perinephric stranding. Sta ghorn calculus is seen of the left kidney measuring 2.4 cm. There is hyperdense material within the u rinary bladder which likely reflects hemorrhagic byproducts. BOWEL: Appendix has a normal appearance. No evidence of bowel obstruction. No inflammatory process. Lymph nodes: No evidence for adenopathy greater than 1 cm. Abdominal aorta: Atheromatous changes seen. No evidence for aneurysm. Genital organs: No significant abnormality. Other: Postoperative changes of lumbar laminectomy and fusion. IMPRESSION: There are partial right-sided nephrectomy changes seen with sutures seen as well as a small amount of free air which still does persist. There is an obstructing calculus at the right UPJ measuring 1.5 c m with [id number] right-sided hydronephrosis. HEMORRHAGIC CONTENTS WITHIN THE URINARY BLADDER L UMEN.
[2024-02-03 13:27] LABS: RBC,Urine >182 /hpf (0-5); WBC,Urine >182 /hpf (0-5)
[2024-02-03 13:28] LABS: Appearance,Urine Turbid (Clear); Color,Urine Red
[2024-02-03] MEDS: MORPHINE SULFATE 4 MG/ML SYRINGE IVP STA (14:13)
[2024-02-03 16:02] VITALS: BP 132/78; PULSE 68; RESP 14; TEMP 98.1
[2024-02-03] MEDS: HYDROmorphone 1 MG/ML 1 ML SYRINGE IVP STA (16:12)
== END 2024-02-03 16:15 | disposition other institution (70) ==
LOC: EC 11:09
DX: N13.2 Hydronephrosis with renal and ureteral calculous obstruction (principal); Z87.891 Personal history of nicotine dependence; Z88.8 Allergy status to other drugs, medicaments and biological substances; Z90.5 Acquired absence of kidney; Z98.890 Other specified postprocedural states
CPT/HCPCS: 36415; 80053; 82150; 83605; 83690; 85025; 85610; 85730; 81001; 74176; 99285; 96374; 96375; 96376 ×2; J2270; J1170 ×2